=== PATIENT | female | born 1950 | race Caucasian/White ===

== ENCOUNTER 2020-05-09 04:34 | Outpatient (CLI) | payer MEDICARE, SELFPAY ==
[2020-05-09 13:54] LABS: ALT 43 U/L (14-59); AST 31 U/L (15-37); Albumin 3.9 g/dL (3.4-5.0); Alkaline Phosphatase 66 U/L (46-116); Anion Gap 7.8 mmol/L (3-11); BUN 13 mg/dL (7-18); Bilirubin, Total 0.5 mg/dL (0.2-1.0); CO2 27.2 mmol/L (21.0-32.0); CREATININE 0.72 mg/dL (0.55-1.02); Calcium 8.9 mg/dL (8.5-10.1); Calculated LDL 119 mg/dL (<100); Chloride 103 mmol/L (98-107); Cholesterol 208 mg/dL (<200); Glucose 89 mg/dL (74-106); HDL Cholesterol 72 mg/dL (40-60); Potassium 4.1 mmol/L (3.5-5.1); Sodium 138 mmol/L (136-145); TSH (W/Ref FT4) 3.52 uIU/mL (0.36-3.74); Total Protein 7.1 g/dL (6.4-8.2); Triglyceride 85 mg/dL (<150)
== END 2020-05-09 04:54 ==
PROVIDERS: PCP Family Medicine; Visit Provider Family Medicine
DX: R53.83 Other fatigue (principal); M85.80 Other specified disorders of bone density and structure, unspecified site; N95.2 Postmenopausal atrophic vaginitis; E78.89 Other lipoprotein metabolism disorders
CPT/HCPCS: 36415; 80053; 80061; 84443

== ENCOUNTER 2020-05-14 00:55 | Outpatient (CLI) | payer MEDICARE, SELFPAY ==
--- NOTE | 2020-05-14 08:42 | DI.MAMMO_ITS ---
EXAM: MG MAMMO SCREENING CLINICAL HISTORY: SCREENING, Z12.39 TECHNIQUE: Bilateral full field digital CC and MLO mammographic images were obtained with 3D tomosyn thesis and utilizing computer aided detection (CAD). COMPARISON: Available for comparison. FINDINGS: Masses/Architectural Distortion: None seen. Microcalcifications: No suspicious pleomorphic-type are seen. Skin Thickening/Nipple Retraction: None. IMPRESSION: 1. No significant interval change with no specific features of malignancy noted. 2. Unless there is more urgent need, screening mammography is recommended, as per [employer] guidelines. BI-RADS Category 1 - Negative Breast Density - Category B - Scattered areas of fibroglandular density A negative radiographic report should not delay biopsy if a dominant or clinically suspicious mass is present. Up to ten percent of cancers are not identified on mammography. A negative report may reinforce clinical impression. Adenosis and dense breasts may obscure an underlying neoplasm. False positive reports average 6 to 10%. Patient will receive a letter notifying them of these results.
== END 2020-05-14 01:15 ==
PROVIDERS: PCP Family Medicine; Visit Provider Family Medicine
DX: Z12.31 Encounter for screening mammogram for malignant neoplasm of breast (principal); R92.2 Inconclusive mammogram
CPT/HCPCS: 77063; 77067

== ENCOUNTER → 2022-05-28 09:38 | Outpatient (CLI) | payer MEDICARE, SELFPAY ==
--- NOTE | 2022-05-28 08:00 | DI.US_ITS ---
Exam(s) US THYROID EXAM: US THYROID CLINICAL HISTORY: thyroid nodule - left,E04.1. TECHNIQUE: Ultrasound thyroid performed using standard protocol. COMPARISON: No exams were available for comparison FINDINGS: ISTHMUS: 1.6 mm RIGHT LOBE: Size: 4.5 x 1 x 1.1 cm Echogenicity: Normal. Vascularity: Normal. Nodules: There is a 0.6 cm cyst in the right lobe. This is consistent with a TIRADS level 1 benign n odule. No follow-up is recommended. LEFT LOBE: Size: 4.8 x 1.3 x 1.1 cm Echogenicity: Normal. Vascularity: Normal. Nodules: There are 2 simple cysts seen in the left lobe of the thyroid gland. The larger measures 1. 2 x 0.5 x 0.6 cm. These are consistent with benign TIRADS level 1 nodules. No follow-up is recommen ded. There is a small spongiform nodule adjacent to the cysts. No follow-up is recommended. This i s a benign TIRADS level 1 nodule. No follow-up is recommended. OTHER FINDINGS: None. IMPRESSION: No suspicious thyroid nodules. DATA REPOSITORY:
--- OUTSIDE RECORDS SUMMARY | 2022-05-28 09:41 | XMS_ITS | Encounter Summary ---
:1950 Author Organization [facility] [place] [address] Care Team Providers Name Role Phone Magalis Leonard MD Primary Care Provider Encounter Details Date Type Department Care Team Description 04/11/2021 Telephone Dermatology at [facility] Concha Quinn MD [address] [facility] [place] [phone] [address] [phone] [place], [place] [address] (Wo rk) Social History Tobacco Use Types Packs/Day Years Used Date Never Smoker Smokeless Tobacco: Never Used Sex Assigned at Date Recorded Not on file documented as of this encounter Miscellaneous Notes Telephone Encounter - Dinorah Aparicio LPN - 04/11/2021 1:17 PM EDT Spoke with patient today about LN2 on her nose and the gnosticism biopsy that we would be doing in the fall. Explained that we did not often see scaring from the LN2, it is always a possibility but it was infrequent. Also discussed biopsy on gnosticism and again we did not see a lot of scarring with this but a possibility. No new questions. documented in this encounter Plan of Treatment Upcoming Encounters Date Type Specialty Care Team Description 09/29/2022 Office Visit Dermatology Concha Quinn MD [facility] [address] [place], [place] [address] (Wo rk) documented as of this encounter Visit Diagnoses Not on filedocumented in this encounter Care Teams National Sales Representative Relationship Specialty Start Date End Date Magalis Leonard MD PCP - General 01/15/[address] [place] [address] documented as of this encounter
--- OUTSIDE RECORDS SUMMARY | 2022-05-28 09:41 | XMS_ITS | Encounter Summary ---
:1950 Author Organization [facility] [address] Care Team Providers Name Role Phone Magalis Leonard MD Primary Care Provider Reason for Visit Reason Comments Follow-up Encounter Details Date Type Department Care Team Description 06/[facility] Marina Leroy MD AK (actinic keratosis); [address] [facility] Neoplasm of uncertain [place] [phone] [facility] [place], [place] [address] Social History Tobacco Use Types Packs/Day Years Used Date Never Smoker Smokeless Tobacco: Never Used Sex Assigned at Date Recorded Not on file documented as of this encounter Patient Instructions Patient InstructionsTiesha Pedroza LPN - 06/04/2021 10:00 AM EDT Actinic Keratoses You have been diagnosed today with Actinic Keratosis (AK). These dry, scaly patches are considered the earliest stage in the development of skin cancer. In rare cases, an AK can progress to skin cancer. Because of this risk, AKs are usually treated. You were treated today with Liquid Nitrogen. This is the most common treatment for AKs. Liquid nitrogen is extremely cold, and freezes the surface of the skin, causing the lesion to flake off. Treatment with liquid nitrogen can be uncomfortable, but discomfort should subside after a couple of hours. The area treated will look red and irritated, and it may blister up or turn dark, then fall off. This is normal! You do not need any special treatment for the area, but you may find cold compresses and/or a light application of Vaseline soothing. For best results, do not rub or pick at the healing lesion. Expected healing time is 3-4 weeks. Please contact the Dermatology clinic if the lesion has not fully resolved after 6 weeks. Treatment and Wound Care Instructions Your treatment today: You have had a shave biopsy of your skin, which is a removal of tissue for examination under a microscope. This wound will heal without stitches. Allow 3-6 weeks for the wound to heal. If bleeding occurs, hold firm pressure against the wound for 15 minutes. If bleeding continues, calls the office or go to your local emergency room. Please allow 1-2 weeks for the biopsy results to return. Your physician or nurse will contact you with the results by phone or letter; follow-up will be discussed at that time. Wound Care Instructions: You will need to keep the dressing placed over the wound dry and intact for 24 hours. Afterwards, perform the following wound care daily: ?? Wash your hands before changing the dressing. ?? Remove the bandage and clean the area with mild soap and water, then gently pat the area dry. ?? Apply a small amount of Vaseline to the area, then cover the wound with a band-aid. Change your dressing daily until the wound is fully healed. ?? A small amount of yellow drainage is part of normal healing. The area might appear as a small depression with redness around the edge of the wound. This is normal. ?? Please contact the office if you notice any of the following signs of infection: increased tenderness, pain, drainage, or redness that becomes hot or hard around the wound. documented in this encounter Progress Notes Dimple Quinn MD - 06/04/2021 10:00 AM EDT Images from the original note were not included. DEPARTMENT OF DERMATOLOGY Medical Dermatology Clinic Provider: DIMPLE QUINN MD Patient's preferred name Porsha Preferred contact method for results [x]Phone []myD-H []Letter Detailed phone message OK? Yes Are there any other people with whom we may discuss your care? , Luis Past Medical History Date, location, treatment Melanoma N Dysplastic nevi 12/29/20107: right scapula, moderate DN 12/29/2016: left inferior scapula, severe DN, S/P excision 05/09/2019: left posterior lateral thigh, severe DN, S/P excision SCC N BCC N AKs N UV Exposure & Protection N Other relevant past medical history Uterine cancer 25 years ago, S/P surgery Rosacea: metrogel Family History Details Melanoma N NMSC N Other relevant family history N Social History Occupation: retired Other: , had melanoma Pre-Procedure Questions Details Allergy to lidocaine, epinephrine, Dermabond, chlorhexidine, or adhesives No Bleeding disorder or blood thinners No Pacemaker, defibrillator, deep brain stimulator, cochlear implant No History of Present Illness: Porsha Rodgers is a 70 y.o. Patient returns to clinic today for a follow pu of the lesion on the left confucianism and nose. - Patient notes that she has an area on the left confucianism that is to be biopsied and spot on the nose that needs LN2 treatment. She mentioned she has other areas on the trunk that need to be treated withLN2. Last visit at [facility] Derm: 03/11/2021 Last visit with this provider: 03/11/2021 Medications: Reviewed in eD-H Allergies: Reviewed in eD-H Skin Examination: Focused exam of left confucianism, nose, torso. Assessment/Plan Neoplasm of uncertain behavior - 0.4 cm pink pearly papule on the left confucianism BCC I discussed this condition with the patient and explored therapeutic options. I recommended we do a shave biopsy, patient is in agreement with this procedure. Procedure: Skin biopsy by shave technique Location: left confucianism Discussed indications for procedure and expectations including risks and benefits. Verbal consent obtained. Skin prep with alcohol. Local anesthesia with 1% xylocaine, 1/100,000 epinephrine. A sample of the lesion was removed by shave technique to the level of the dermis and submitted to Pathology. Hem ostasis obtained (AlCl and/or electrocautery). There were no complications; the pt. tolerated the procedure well. The wound was dressed. Post-procedure expectations, wound care and activity restrictions were reviewed. Follow-up based on pathology results Actinic damage, history of AK- Nasal tip: Clear on exam today -Continue to monitor. Seborrheic Keratoses - waxy, brown stuck-on papules - Explained that these are hereditary and adult-acquired. Reassured patient of benign nature. No treatment necessary. - Discussed cosmetic removal with cryotherapy. Patient quoted $100 for removal of 1-10, and $200 forremoval of 11-20. Patient declined cosmetic removal today. - Pt quoted 100.00. See cosmetic note Figure 1 Photo in chart from 03/11/2021 Photo(s) taken and charted with patient's verbal consent. Other: ??? N/A RTC: Based on path for 1 year FSE February 2022 []Note routed to secretary to board of commissioners [x]Recall placed in scheduling system []Appointment scheduled at checkout I performed the above scribed service and agree with the accuracy of the documentation in this encounter. Reviewed and signed by: DIMPLE QUINN MD Dermatology [facility] Dimple Quinn MD - 06/04/2021 10:00 AM EDT CD, Biopsy shows BCC, recommend Mohs. Please notify patient and refer for Mohs. documented in this encounter Plan of Treatment Upcoming Encounters Date Type Specialty Care Team Description 09/29/2022 Office Visit Dermatology Dimple Quinn MD [facility] [address] [place], [place] [address] (Wo rk) documented as of this encounter Procedures Procedure Name Priority Date/Time Associated Diagnosis Comme nts SPECIMEN TO Routine 06/04/2021 10:34 AM Neoplasm of Results for this PATHOLOGY EDT uncertain behavior procedure are in of skin the results section. SURGICAL PATHOLOGY Routine 06/04/2021 10:22 AM Re sults for this REPORT EDT procedure are i n the results section. documented in this encounter Results Specimen to Pathology (06/04/2021 10:34 AM EDT) Specimen Anatomical Collection Method Collection Time Receive d Time (Source) Location / / Volume Laterality AP Specimen 06/04/2021 10:34 06/04/2021 AM EDT 10:34 AM EDT Narrative [facility] - 06/04/2021 10:34 AM EDT Specimen requisition ordered. ??Separate Pathology report to follow Dimple Quinn MD PATHOLOGY/CYTOLOGY ORDERABLE S Performing Organization Address City/State/[place] [address] Surgical Pathology Report (06/04/2021 10:22 AM EDT) Component Value Ref Test Analysis Performed At [facility] Range Method Time Signature Surgical [id number] ? Location: [facility] The signing pathologist has (i) examined the relevant preparation(s) for the [facility] specimen(s) and (ii) rendered or confirmed the diagnosis(es) . HOSPITAL LABORATORY . ?Surgic al Pathology DIAGNOSIS Left confucianism, skin shave biopsy: - ??Basal cell carcinoma, no dular type, present at the peripheral and deep specimen edges Electronically signed by: ?Sajan Morel MD Verified: ??06/09/2021 14:12 ??Dermatopathologist, Bone & Soft Tissue Pathologist Performed at: ??-[facility] Dept. of Pathology, [place], [place] SPECIMEN(S) SUBMITTED A - left confucianism, skin shave biopsy (1) CLINICAL INFORMATION 0.4 cm pink pearly papule on the left confucianism; DDX: BCC SPECIMEN PROCESSING A - Labeled/Fixative: Left confucianism, formalin. Quantity/Size: ??Single, 0.6 x 0.5 x 0.1 cm. Tissue Description: Shave of schafer skin wi th a central 0.4 cm glistening papule. Sections/Processing: Inked, trisected and entirely submitted in 1 cassette labele d A1. ??morro Specimen (Source) Anatomical Collection Method Collection Time Re ceived Time Location / / Volume Laterality 06/04/2021 10:22 AM EDT Dimple Quinn MD PATHOLOGY/CYTOLOGY ORDERABLE S Performing Organization Address City/State/[place] [address] documented in this encounter Visit Diagnoses Diagnosis Seborrheic keratoses AK (actinic keratosis) Actinic keratosis Neoplasm of uncertain behavior of skin documented in this encounter Care Teams Keyseating Machine Set Up Operator Relationship Specialty Start Date End Date Magalis Leonard MD PCP - General 01/15/[address] [place] [address] documented as of this encounter
--- OUTSIDE RECORDS SUMMARY | 2022-05-28 09:41 | XMS_ITS | Encounter Summary ---
:1950 Author Organization [facility] [place] [address] Care Team Providers Name Role Phone Magalis Leonard MD Primary Care Provider Reason for Visit Reason Comments Procedure Excision Encounter Details Date Type Department Care Team Description 06/27/2019 [facility] [address] [place] [address] [address] [phone] [facility] [place], [place] [address] (Wo rk) Social History Tobacco Use Types Packs/Day Years Used Date Never Smoker Smokeless Tobacco: Never Used Sex Assigned at Date Recorded Not on file documented as of this encounter Patient Instructions Patient InstructionsKaila Wheat, [facility] - 06/27/2019 3:30 PM EDT Post-Operative Instructions Wound care: The dressing applied today should remain dry and intact for 48 hours. When it is time to remove the dressing, wash your hands, wet the area, and gently remove the dressing. Afterward perform the following daily wound care: 1. Clean the wound with mild soap and warm water, and gently pat dry. 2. Apply Vaseline, Aquaphor or another brand of plain petroleum jelly. Do NOT use peroxide or antibiotic ointment/cream (Neosporin or Bacitracin) on the wound. 3. Cover the wound with a new bandage, such as non-stick Telfa pad and paper tape, or a Band-Aid. 4. Repeat this regimen every day until your sutures are removed. A small amount of yellow drainage is part of the normal healing process. The wound is not consideredhealed until the drainage stops. It may take up to 3-4 weeks depending on the surgical site. Signs of infection include: increasing redness, drainage, swelling, tenderness or pain. If you notice any ofthose symptoms, please contact the clinic. For bleeding or discomfort: If bleeding should occur, hold firm, constant pressure against the wound for 15- 20 minutes (with no peeking). If bleeding continues, repeat for another 15-20 minutes. If that does not stop the bleeding, call the clinic or go to your local emergency department. For discomfort, you may take acetaminophen (Tylenol), according to package directions. For the first48 hours, avoid aspirin and ibuprofen (Advil, Motrin), as they increase the risk of bleeding. After 48 hours, it is okay to switch to aspirin or ibuprofen as needed. Activity restrictions: It is important that you avoid strenuous and/or vigorous activities, heavy lifting (more than 5-10 pounds, the equivalent of 1 gallon of milk) and bending for a period of 3 weeks. Suture removal: The sutures should be removed in 12-14 days. Contact information: On weekdays (8am to 5pm), please call the clinic at [phone]. After 5pm, and on weekends and holidays, please call the hospital at [phone] and ask for the Wig Maker Port Crane Operator. Doctor: Concha Quinn MD Bioprocess Engineer: RONN Sotelo documented in this encounter Progress Notes Concha Quinn MD - 06/27/2019 3:30 PM EDT Images from the original note were not included. Procedure note: Attending: Concha Quinn MD Bioprocess Engineer: RONN Sotelo Referring MD: N/A ? Y/N? Blood thinners?? ? Yes: ASA81 Pacemaker or defibrillator?? ? No Artificial heart valves? ? No Artificial joints? No Prophylactic antibiotics?? ? No If yes, time taken?? ? Allergies to lidocaine and epinephrine? ? No ? Allergies to adhesives or chlorhexidine? ? Yes: adhesives ? Pathology: [id number] (05/09/2019) Left posterior lateral thigh, shave biopsy: Predominantly junctional dysplastic nevus with severe atypia, irritated, extending close to the peripheral and deep specimen edges. Discussion: The lesion isbroad with prominent lentiginous and partially nested growth, increase in cellularity, adnexal involvement and scattered pagetoid melanocytes. Focal dermal regression-related changes are also noted. The lesional cells extend towards the deep specimen edge along the adnexa and close to the??periphery. ---- I explained the diagnosis to the patient and recommend an excision of the lesion for diagnosis and/or treatment. I explained all treatment options and risks of the procedure to the patient and obtainedwritten consent. Potential complications include, but not limited to: scar, bleeding, infection, incomplete removal, nerve damage, and dehiscence. ? The patient was brought into room. A time out was performed. The patient was prepared and draped sterilely in the usual manner and anesthesia was administered by local infiltration. A fusiform shape was drawn around the lesion, and the margins were incised to the level of the subcutaneous fat with a number 10 blade. The tissue was removed with sharp and blunt dissection. The lateral margins of the resulting defect were undermined with sharp and blunt dissection and hemostasis was achieved with electrocautery. The deeper layers of the defect including subcutaneous fat were approximated to reduce tension on the suture line. Layered wound closure was performed. The wound was cleaned, dried off, Vaseline was applied and the wound covered with a pressure dressing. The patient was given detailed verbaland written instructions on post-operative care. ? In the event of a suspected infection (e.g. pus formation, fever, redness), the patient knows to call the clinic or the on-call convertible sofa bedspring tester over the weekend. ??? Name of Procedure? ? Excision with intermediate layered closure Location? ?? Left posterior lateral thigh Diagnosis? ?? Severe DN Size (maximal) (cm)? ?? 1.2 x 1.0 cm pink scar Margins (cm)? 0.4 cm ? Size + Margins (cm)? ? 2 cm ? 1% lidocaine with epinephrine? 9 cc? Suture (adipose/dermis)? 4-0 P2 Monocryl? Suture (epidermis)? 4-0 P2 Prolene? Final wound length? 4.6 cm? Suture removal? 12-14 days?; patient will have her daughter remove Note: Specimen tagged at the superior tip. Best way to reach you with results: Cell phone, okay to leave a detailed message or speak with her (Luis). Follow Up: RTC in May 2020 for a 1-year full skin exam; sooner if needed. Recall in system to schedule. Instructed patient to call with questions or concerns. Pre Op Photo(s) taken and charted with patient's verbal consent. Concha Quinn MD - 06/27/2019 3:30 PM EDT Radha, Excision shows scar, no residual lesion. Please notify patient and check on wound healing. Thank you. DTB Mark Baxter LPN - 06/27/2019 3:30 PM EDT Spoke with patient regarding her recent excision pathology from the left posterior lateral thigh. Per Dr. Quinn: Excision shows scar, no residual lesion. Patient verbalized understanding and reports she is healing well from the excision procedure. She plans to have her sutures removed at an outside cl inic 14 days post-op as instructed. I encouraged an additional 7 days of physical restriction once her sutures are removed, and to call our clinic with any question or concerns. Patient verbalized understanding. MARK BAXTER LPN documented in this encounter Plan of Treatment Upcoming Encounters Date Type Specialty Care Team Description 09/29/2022 Office Visit Dermatology Concha Quinn MD [facility] [address]DERMAT [place], [place] [address] (Wo rk) documented as of this encounter Procedures Procedure Name Priority Date/Time Associated Diagnosis Comme nts SURGICAL PATHOLOGY Routine 06/27/2019 4:36 PM Res ults for this REPORT EDT procedure are i n the results section. SPECIMEN TO Routine 06/27/2019 4:36 PM Dysplastic nevus Resul ts for this PATHOLOGY EDT procedure are i n the results section. documented in this encounter Results Surgical Pathology Report (06/27/2019 4:36 PM EDT) Component Value Ref Test Analysis Performed At [facility] Range Method Time Signature Surgical -[id number] ? Location: [facility] Pathology ALTO Report The signing pathologist has (i) examined the relevant preparation(s) for the MEMORIAL specimen(s) and (ii) rendered or confirmed the diagnosis(es) . HOSPITAL LABORATORY . ?Surgic al Pathology DIAGNOSIS Skin, left posterior lateral thigh, excision: - No residual of the previou sly diagnosed dysplastic nevus ?(see Discussion) - ??Reparative changes consistent with previous operative si te Electronically signed by: ??Jesús CURIEL, PhD, Judith Verified: ??06/30/2019 ?Dermatopathologist Performed at: ??-[facility] Dept. of Pathology, [place], [place] DISCUSSION Slides of the patient's prior biopsy (- ?? [id number]) have been reviewed. CLINICAL INFORMATION Specimen Submitted: A - Skin, Left posterior lateral thigh, Excision (1) Clinical History and Diagnosis: 1.2 x 1.0 cm pink scar; delmi COLON (see previous pathology -[id number]); specimen tagged at the superior tip SPECIMEN PROCESSING A - Labeled/Fixative: Left posterior lateral thigh, formalin . Quantity/Size: ??Single, 3.5 x 1.7 x 0.4 cm. Tissue Description: Ellipse of wrinkled, yellow-schafer skin with a central 0.6 x 0.5 cm umbilicated scar. A suture decker the superior ellipse tip and this is now designated as 12 o'clock Inkin-3-6 o'clock is marked black. ??6-9-12 o'clock is marked blue. Sections/Processing: Serially sectioned and entirely submitted in 5 cassettes as follows: ?A1: ??12 o'clock tip ?A2-A4: ??Body of the specimen from 12 to 6 o'clock ?A5: ??6 o'clock tip ??ejr Specimen (Source) Anatomical Collection Method Collection Time Re ceived Time Location / / Volume Laterality 06/27/2019 4:36 PM EDT Concha Quinn MD PATHOLOGY/CYTOLOGY ORDERABLE S Performing Organization Address City/[facility]/[place] [address] Specimen to Pathology (06/27/2019 4:36 PM EDT) Specimen Anatomical Collection Method Collection Time Receive d Time (Source) Location / / Volume Laterality AP Specimen 06/27/2019 4:36 PM 9 6:29 EDT PM [address] [facility] [facility] - 06/27/2019 6:29 PM EDT Specimen requisition ordered. ??Separate Pathology report to follow Resulting Agency Comment Spec In Lab Concha Quinn MD PATHOLOGY/CYTOLOGY ORDERABLE S Performing Organization Address City/[facility]/[place] [address] documented in this encounter Visit Diagnoses Diagnosis Dysplastic nevus Benign neoplasm of skin, site unspecifie d documented in this encounter Care Teams Swine Genetics Researcher Relationship Specialty Start Date End Date Magalis Leonard MD PCP - General 01/15/[address] [place] [address] documented as of this encounter
--- OUTSIDE RECORDS SUMMARY | 2022-05-28 09:41 | XMS_ITS | Clinical Summary ---
:1950 Author Organization [facility] [place] [address] Care Team Providers Name Role Phone Magalis Leonard MD Primary Care Provider Allergies Active Allergy Reactions Severity Noted Date Comments Ibuprofen CIS - Palpitati ons Sulfa (Sulfonamide CIS - Clive mors/elev. temp. Antibiotics) Medications Medication Sig Dispensed Refills Start Date End Date Status CIS Free Text Med - All 0 03/01/2006 Active Purpose Multivitamin-Min CIS Free Text Med - 0 03/01/2006 Active Metrogel Calcium 0 03/01/2006 Active Carbonate-Vitamin D3 (CALCIUM 600 WITH VITAMIN D3) 600 mg(1,500mg) -400 unit Cap GLUCOSAMINE HCL/CHONDRO 0 03/01/2006 Active LUNA A (GLUCOSAMINE-CHONDROITI N ORAL) loratadine (CLARITIN) 0 03/01/2006 Active 10 mg tablet ESTRADIOL (VAGIFEM Place vaginally. 0 Active VAGL) DOCOSAHEXANOIC ACID/EPA Take by mouth. 0 Active (FISH OIL ORAL) b complex vitamins Take 1 capsule by 0 Active Capsule mouth daily. aspirin 81 mg Tablet, Take 81 mg by 0 Active Delayed Release (E.C.) mouth daily. ascorbic acid (AGUSTINA-C Take by mouth. 0 Active ORAL) magnesium 250 mg Tablet Take by mouth. 0 Active ergocalciferol, vitamin Take by mouth. 0 Active D2, (VITAMIN D ORAL) TURMERIC ORAL Take by mouth. 0 A ctive With cucurmin Immunizations Name Administration Dates Next Due Td, adult 09/16/2004 Family History Medical History Relation Comments Breast Cancer Maternal Grandmother Relation Status Comments Maternal Grandmother Social History Tobacco Use Types Packs/Day Years Used Date Never Smoker Smokeless Tobacco: Never Used Sex Assigned at Date Recorded Not on file Last Filed Vital Signs Vital Sign Reading Time Taken Comments Blood Pressure 130/74 09/23/2021 12:15 PM EST Pulse 57 09/23/2021 12:15 PM EST Temperature - - Respiratory Rate - - Oxygen Saturation - - Inhaled Oxygen Concentration - - Weight - - Height - - Body Mass Index - - Plan of Treatment Upcoming Encounters Date Type Specialty Care Team Description 09/29/2022 Office Visit Dermatology Concha Quinn MD [facility] [address] COOK-DERMAT [place], [place] [address] (Wo rk) Health Maintenance Due Date Last Done Comments Covid-19 Vaccine (#1) 1955 Hepatitis C Screening 1968 Tdap adult 1969 Breast Cancer Share Decision 1990 Needed Colonoscopy 1995 Zoster vaccine (1 of 2) 2000 Advance Directive 2005 Tetanus vaccine 09/16/2014 09/16/2004 Bone Density Scan 2015 Pneumoccocal Vaccine: 65+ (1 - 2015 PCV) Breast Cancer screening 03/31/2020 03/31/2018, 05/08/2016, 03/04/2015, Additional history exists Influenza (Flu) vaccine (1 of 1 - 05/14/2022 Influenza standard series) Insurance Payer Benefit Plan / Subscriber ID Effective Phone Address T ype Group Dates MEDICARE MEDICARE PART A [id number] 2015-Pres [phone] [facility] [place] [phone] AETNA MEDICARE AETNA MEDICARE [id number] 2020-Prese [address] [address] [place] [address] Care Teams Senior Maintenance Machinist Relationship Specialty Start Date End Date Magalis Leonard MD PCP - General 01/15/[address] [place] [address]
--- OUTSIDE RECORDS SUMMARY | 2022-05-28 09:41 | XMS_ITS | Encounter Summary ---
:1950 Author Organization [facility] [place] [address] Care Team Providers Name Role Phone Magalis Leonard MD Primary Care Provider Reason for Referral Consultation (Routine) - Closed Specialty Diagnoses / Procedures Referred By Contact Refer red To Contact Dermatology Diagnoses Basal cell carcinoma of left religion region Concha Quinn MD [facility] [address] [facility] [place] [address] [place] [address] Referral ID Status Reason Start Date Expiration Date Visits V isits Requested Authorized [id number] Closed Consult, 06/14/2021 06/14/2022 1 1 Test & Treat Encounter Details Date Type Department Care Team Description 06/14/2021 Telephone Dermatology at [facility] Concha Quinn MD [address] [facility] [place] [address] [facility] [phone] [place], [place] [address] (Wo rk) Social History Tobacco Use Types Packs/Day Years Used Date Never Smoker Smokeless Tobacco: Never Used Sex Assigned at Date Recorded Not on file documented as of this encounter Miscellaneous Notes Telephone Encounter - Dinorah Aparicio LPN - 06/14/2021 2:19 PM EDT Referred to [facility] per Dr. Quinn documented in this encounter Plan of Treatment Upcoming Encounters Date Type Specialty Care Team Description 09/29/2022 Office Visit Dermatology Concha Quinn MD [facility] [address] [place], [place] [address] (Wo rk) Scheduled Referrals Name Type Priority Associated Order Schedule Diagnoses Referral to Outpatient Referral Routine Basal Cell Ordered: Dermatology Carcinoma Of Left 06/14/2021 [place] documented as of this encounter Visit Diagnoses Diagnosis Basal cell carcinoma of left religion traci on Basal cell carcinoma of skin of other an d unspecified parts of face documented in this encounter Care Teams Knitting Supervisor Relationship Specialty Start Date End Date Magalis Leonard MD PCP - General 01/15/[address] [place] [address] documented as of this encounter
--- OUTSIDE RECORDS SUMMARY | 2022-05-28 09:41 | XMS_ITS | Encounter Summary ---
:1950 Author Organization [facility] [place] [address] Care Team Providers Name Role Phone Magalis Leonard MD Primary Care Provider Encounter Details Date Type Department Care Team Description 06/27/2019 Telephone Dermatology at [facility] Concha Quinn MD [address] [facility] [place] [address] [facility] [phone] [place], [place] [address] (Wo rk) Social History Tobacco Use Types Packs/Day Years Used Date Never Smoker Smokeless Tobacco: Never Used Sex Assigned at Date Recorded Not on file documented as of this encounter Miscellaneous Notes Telephone Encounter - Mark Baxter LPN - 06/27/2019 9:11 AM EDT Pre - OP Excision Phone Call Date of Call: 06/27/19 Unable to reach Porsha Rodgers by phone to discuss pre-op procedure instructions. Message left on answering machine. MARK BAXTER LPN documented in this encounter Plan of Treatment Upcoming Encounters Date Type Specialty Care Team Description 09/29/2022 Office Visit Dermatology Concha Quinn MD [facility] [address] [place] [address] (Wo rk) documented as of this encounter Visit Diagnoses Not on filedocumented in this encounter Care Teams Hand Spray Operator Relationship Specialty Start Date End Date Magalis Leonard MD PCP - General 01/15/[address] [place] [address] documented as of this encounter
--- OUTSIDE RECORDS SUMMARY | 2022-05-28 09:41 | XMS_ITS | Encounter Summary ---
:1950 Author Organization [facility] [address] Care Team Providers Name Role Phone Magalis Leonard MD Primary Care Provider Reason for Visit Reason Comments Pre-op Exam Pre-op nurse intake Encounter Details Date Type Department Care Team Description 06/27/2019 Clinical Support Dermatology at [facility] Pre-op exam [address] [place] [address] Social History Tobacco Use Types Packs/Day Years Used Date Never Smoker Smokeless Tobacco: Never Used Sex Assigned at Date Recorded Not on file documented as of this encounter Last Filed Vital Signs Vital Sign Reading Time Taken Comments Blood Pressure 110/64 06/27/2019 5:54 PM EDT Pulse - - Temperature - - Respiratory Rate - - Oxygen Saturation - - Inhaled Oxygen Concentration - - Weight - - Height - - Body Mass Index - - documented in this encounter Progress Notes [facility]ail[facility] Wheat[facility] - 06/27/2019 3:15 PM EDT DERMATOLOGY NURSE/MA VISIT NOTE Date of service: 06/27/2019 Porsha Rodgers : 1950 Provider: CRISTIAN DELAROSA DERM NURSE CC Pre-procedure nurse intake HPI Porsha Rodgers is a 68 y.o. female, who presents to the clinic today for a procedure visit. EXAM Pre-surgery vital signs: Most Recent Vitals: 06/27/19 1754 BP: 110/64 Allergies: Ibuprofen and Sulfa (sulfonamide antibiotics) Meds: Current Outpatient Medications Medication Sig Dispense Refill ??? DOCOSAHEXANOIC ACID/EPA (FISH OIL ORAL) Take by mouth. ??? b complex vitamins Capsule Take 1 capsule by mouth daily. ??? aspirin 81 mg Tablet, Delayed Release (E.C.) Take 81 mg by mouth daily. ??? ESTRADIOL (VAGIFEM VAGL) Place vaginally. ??? CIS Free Text Med - All Purpose Multivitamin-Min ??? CIS Free Text Med - Metrogel ??? Calcium Carbonate-Vitamin D3 (CALCIUM 600 WITH VITAMIN D3) 600 mg(1,500mg) - 400 unit Cap (Patient not taking: No sig reported) ??? GLUCOSAMINE HCL/CHONDRO LUNA A (GLUCOSAMINE-CHONDROITIN ORAL) ??? loratadine (CLARITIN) 10 mg tablet No current facility-administered medications for this visit. Reviewed surgery expectations and post-operative wound care instructions. Patient verbalized understanding. Answered all questions. Confirmed surgical site with patient. Prepared patient for surgery. RONN Vila Section of Dermatology [facility] documented in this encounter Plan of Treatment Upcoming Encounters Date Type Specialty Care Team Description 09/29/2022 Office Visit Dermatology Concha Quinn MD [facility] [address]RIST[address] COOK-DERMAT [place], [place] [address] (Wo rk) documented as of this encounter Visit Diagnoses Diagnosis Pre-op exam Preoperative examination, unspecified documented in this encounter Care Teams Cephalometric Tracer Relationship Specialty Start Date End Date Magalis Leonard MD PCP - General 01/15/[address] [place] [address] documented as of this encounter
--- OUTSIDE RECORDS SUMMARY | 2022-05-28 09:41 | XMS_ITS | Encounter Summary ---
:1950 Author Organization [facility] [place] [address] Care Team Providers Name Role Phone Magalis Leonard MD Primary Care Provider Reason for Visit Consultation (Routine) - Closed Specialty Diagnoses / Procedures Referred By Contact Refer red To Contact Dermatology Diagnoses Basal cell carcinoma of left rastafari region Concha Quinn MD [facility] [address] [facility] [place] [place] [address] [place] [address] Referral ID Status Reason Start Date Expiration Date Visits V isits Requested Authorized [id number] Closed Consult, 06/14/2021 06/14/2022 1 1 Test & Treat Encounter Details Date Type Department Care Team Description 09/23/2021 Procedure visit Dermatology at [facility] Ruy Polanco Basal cell carcinoma Marina Perkins MD (BCC) of left rastafari [address] [place], [place] CENTER [address] [facility] [phone] [address]-[place]MATOLOGY [place], [place] [address] Social History Tobacco Use Types Packs/Day Years [...] - documented in this encounter Progress Notes Ruy Polanco MD - 09/23/2021 9:30 AM EST Images from the original note were not included. Summary of Procedure(s): Site: left rastafari Tumor Type: Basal Cell Carcinoma, nodular Stages to clear tumor: 1 Repair: Intermediate linear closure Images: The patient was asked to call with any issues and is aware that I am available 05/04 should questionsarise. Ruy Polanco MD PhD Mohs Micrographic Surgery and Dermatologic Oncology Department of Dermatology Please note that I have reviewed the preoperative checklist from today's nursing visit including relevant social history and medications. I have reviewed the preoperative photos if available and the biopsy report. VITAL SIGNS: BP 130/74 Pulse 57 PHYSICAL EXAMINATION: General: patient is awake, alert, oriented and in no acute distress. Skin: Focused examination of surgical site(s) performed which shows a well healed biopsy site with surrounding poorly defined pearly plaque. PHYSICIAN REVIEW OF REPORTS, RECORDS, IMAGES: 1) The accompanying pathology report(s) associated with aforementioned biopsy slide(s) were/was alsoreviewed. Assessment: Porsha Rodgers is a 71 y.o. female presenting for: 1. Biopsy-proven basal cell carcinoma, nodular, located on the left rastafari. Plan: 1. Findings from the biopsy report, today's clinical exam, and other pertinent details were reviewedwith patient today. All questions were answered. 2. Discussed treatment options based on the above findings. We recommended Mohs micrographic surgeryfor treatment of this tumor. Mohs micrographic surgery was indicated due to patient, site and/or tumor characteristics (see operative report for specific indication). 3. We discussed risks, benefits, and alternative treatment options to the Mohs micrographic surgery procedure and pertinent information including but not limited to the following: ?? Risks include bleeding, infection, scar, recurrence, incomplete tumor removal or inability to cure with surgery alone if the tumor features are more aggressive than the initial pathology indicates. Occasionally, additional adjuvant treatments may be recommended. Additional risks include large wound, prolonged wound and healing, pain, swelling, bruising, increased appearance of vessels or worseningerythema of baseline skin; more rarely risks include damage to underlying structures such as nerves,cartilage, or muscle which could lead to temporary or permanent loss of sensation or motor function. ?? Benefit is precise tumor removal ?? If reconstruction is performed, it is specific to the patient and defect. ?? Discussed that the shape, size, depth of the wound is often not known until the tumor is cleared and thus the reconstruction options are sometimes not known until after tumor clearance. Occasionally, referrals to other providers may be recommended for reconstruction based on patient preference and need. ?? Reviewed the pros and cons of common reconstructions used for this tumor type, size, and location, and that reconstruction may lead to change in appearance. ?? Natural history of scar was discussed, including that the scar will continue to mature for 1-2 years. Recommended avoidance of special ointments or scar creams, and avoidance of direct sun exposure to the scar for optimal recovery. ?? Reviewed that there are some aspects of cosmesis that are dependent on patient's characteristics such as age, skin laxity/texture factors, inflammatory skin diseases such as rosacea, prior surgery/radiation, degree of actinic damage, smoking status, strength of the patient's immune system, diligentwound care, medications, and genetics. ?? Having Mohs surgery may lead to physical limitations for optimal healing, such as restricted physical activity and heavy lifting. 4. The nature of sun-induced photo-aging and skin cancers was discussed. Recommended sun avoidance when possible, especially peak hours of sun 10 am to 2pm, protective clothing such as wide-brimmed hats and long-sleeved clothing, and the use of SPF broad-spectrum sunscreen SPF 50 or higher. 5. Signs and symptoms of skin cancer reviewed. Patient to report any new, changing, or symptomatic lesions and follow up with his or her registered nurse obstetrics or other skin provider. 6. Discussed avoiding direct sun exposure to scars for best cosmetic result. Note initiated by MARLYS Eckert CMA has performed the documentation for this encounter in the presence of and acting as a scribe for Dr. Polanco I performed the above scribed service and agree with the accuracy of the documentation in this encounter. Reviewed and signed by: Ruy Polanco Dermatology [facility] Ruy Polanco MD - 09/23/2021 9:30 AM EST Mohs micrographic Surgery Operative Report Patient name: Porsha Rodgers : 1950 Date: 09/23/2021 Staff Surgeon: Ruy Polanco MD PhD Nursing/Social Services Director(s): Tali Johnston [facility], Nikkie Marie LPN, Kajal Pierce TUB RIDER, Marvin Waller TUB RIDER Timber Sizer Operator (s): Porsha Castanon Pre-operative diagnosis: Basal Cell Carcinoma, nodular Post-operative diagnosis: Basal Cell Carcinoma, nodular Location/Site: left rastafari Procedure: Mohs micrographic surgery Indication(s) for Mohs micrographic surgery: Anatomic location for tissue conservation Stages: 1 Preoperative size of tumor: 0.6 x 0.5 cm Stage I The nature and purpose of the procedure, associated risks, possible consequences and complications,and alternative forms of treatment were explained in detail. We reviewed the possible repairs based on the clinical appearance of tumor but discussed that often the repair options may not be known until the tumor has jhon extirpated. Informed consent and permission to take photographs were obtained. The site was confirmed with the patient/authorized registration representative/referring physician and/or a photograph form time of biopsy. A pre-operative time-out (procedural pause) was conducted with no unresolved d iscrepancies noted. Local anesthesia was obtained with 1% lidocaine with 1:100,000 epinephrine. The surgical site was prepped and draped in the usual sterile manner. With all visible gross tumor completely excised, the borders of the tumor and 2-3 mm margins were excised as a complete layer. Hemostasis was achieved by electrocoagulation. The excised tissue was oriented and divided into 2 sections, chromacoded, and submitted for frozen sections. The patient tolerated the procedure well and without complications. On microscopic evaluation of the frozen sections, no residual tumor was identified on the deep or outer border of the sections. The final size of the defect after complete tumor removal was 1.0 x 0.8 cm, extending to level of subcutaneous tissue. Ruy Polanco MD PhD Mohs Micrographic Surgery and Dermatologic Oncology Department of Dermatology [address] [place] [id number] Repair Operative Report Clinical Diagnosis: 1.0 x 0.8 cm surgical defect secondary to Mohs microscopically controlled excision Location/Site: left rastafari Indication: repair of wound for anatomic/functional latter-day Procedure: Intermediate linear closure of Mohs defect Weave Room Supervisor: Ezio Bustamante MD, Marvin Waller CMA Due to the size and location of the defect resulting from the complete removal of the tumor, the postoperative risk of hemorrhage, infection, and the possibility of serious deformity from scarring, and in order to restore proper function and prevent loss of function, the defect was closed in the following manner. The nature and purpose of the procedure, associated risks, possible consequences, complications andalternative methods of treatment were explained to the patient in detail. An informed consent was obtained. The operative site was anesthetized with 1% lidocaine with 1:100,000 epinephrine. The site was prepped and draped in the usual sterile manner. Moderate undermining of the surrounding tissue was performed for tension free closure as necessary and redundant tissue excised. The deep tissues were apposed and sutured with 4-0 Monocryl sutures and the epidermal edges were approximated with 6-0 Fast A bsorbing Gut running and/or interrupted sutures. .The resulting intermediate linear closure measured3.0 cm. The surgical site was cleaned and white petrolatum with a pressure dressing was applied. The patient tolerated the procedure well and without complications and was given both verbal and written instruction on postoperative wound care. Follow up as needed. The patient was discharged in good condition. Total local anesthesia with 1% lidocaine with 1:100,000 epinephrine used: 4.5 cc Total local with 0.25% bupivacaine used: 2.0 cc Ruy Polanco MD PhD Mohs Micrographic Surgery and Dermatologic Oncology Department of Dermatology [address] [place] [id number] Note initiated by Marvin Waller CMA. Marvin Waller CMA has performed the documentation for this encounter in the presence of and acting as a scribe for Dr. Carl Farrell performed the above scribed service and agree with the accuracy of the documentation in this encounter. Reviewed and signed by: Ruy Polanco Dermatology [facility] documented in this encounter Plan of Treatment Upcoming Encounters Date Type Specialty Care Team Description 09/29/2022 Office Visit Dermatology Concha Quinn MD [facility] [address] [place], [place] [address] (Wo rk) Scheduled Referrals Name Type Priority Associated Order Schedule Diagnoses Referral to Outpatient Referral Routine Basal Cell Ordered: Dermatology Carcinoma Of Left 06/14/2021 [facility] documented as of this encounter Visit Diagnoses Diagnosis Basal cell carcinoma (BCC) of left templ e region documented in this encounter Care Teams Bread Racker Relationship Specialty Start Date End Date Magalis Leonard MD PCP - General 01/15/[address] [place] [address] documented as of this encounter
--- OUTSIDE RECORDS SUMMARY | 2022-05-28 09:41 | XMS_ITS | Encounter Summary ---
:1950 Author Organization [facility] [place] [address] Care Team Providers Name Role Phone Magalis Leonard MD Primary Care Provider Encounter Details Date Type Department Care Team Description 09/17/2021 Telephone Dermatology at [facility] Marvin Waller CMA [address] [place] [address] Social History Tobacco Use Types Packs/Day Years Used Date Never Smoker Smokeless Tobacco: Never Used Sex Assigned at Date Recorded Not on file documented as of this encounter Miscellaneous Notes Telephone Encounter - Marvin Waller CMA - 09/17/2021 3:52 PM EST Mohs consultation and preoperative note (H&P) Patient Name: Porsha Rodgers Age: 71 y.o. Date of : 1950 Today's Date: 09/17/2021 REFERRING PROVIDER: No ref. provider found CC: Mohs micrographic surgery for treatment of a cutaneous tumor HPI: Porsha Rodgers is a 71 y.o. female presenting for biopsy-proven basal cell carcinoma, nodular, location on the left jewish. The dermatologic preoperative information sheet was reviewed with pertinent positive and negative as below. DERMATOLOGIC PRE-OPERATIVE EVALUATION AND REVIEW OF SYSTEMS History of Mohs surgery? no If yes, have you ever had Mohs surgery with Dr. Henry? no Pacemaker/Defibrillator? no Joint replacement or other implantable devices (e.g. Cochlear implant)? If yes then when? no Do you take a blood thinner? Yes Aspirin History of organ transplant? no History of artificial valve or stroke? no History of liver disease or bleeding disorder? no Do you have any medical problems that may affect your upcoming surgery? no Do you have any concerns regarding your upcoming surgery? yes, scarring/cosmetic results We ask patients to discontinue Fish oil/Multivitamin/Vit E/?? supplements and natural medicines not prescribed by a physician 1 week prior to surgery. SOCIAL HISTORY: Makes Own Decisions Yes Hearing aid or other devices: No Relevant travel history or future plans: No Tobacco use (amount per day, type of tobacco): no Do you have any physical limitations that may affect your surgery?: no ALLERGIES: Allergies reviewed MEDICATIONS: Medications reviewed documented in this encounter Plan of Treatment Upcoming Encounters Date Type Specialty Care Team Description 09/29/2022 Office Visit Dermatology Concha Quinn MD [facility] [address] [place] [address] (Wo rk) documented as of this encounter Visit Diagnoses Not on filedocumented in this encounter Care Teams Television Inspector Relationship Specialty Start Date End Date Magalis Leonard MD PCP - General 01/15/[address] [place] [address] documented as of this encounter
--- OUTSIDE RECORDS SUMMARY | 2022-05-28 09:41 | XMS_ITS | Encounter Summary ---
:1950 Author Organization [place] [address] Care Team Providers Name Role Phone Magalis Leonard MD Primary Care Provider Reason for Visit Reason Comments Procedure Encounter Details Date Type Department Care Team Description 06/04/2021 Office Visit Dermatology at [facility] borrheic keratoses Marina Leroy MD [address] [place] [address] [facility]-DER[facility]OLGY [place], [place] [address] Social History Tobacco Use Types Packs/Day Years Used Date Never Smoker Smokeless Tobacco: Never Used Sex Assigned at Date Recorded Not on file documented as of this encounter Progress Notes [facility] Quinn MD - 06/04/2021 10:15 AM EDT COSMETIC DERMATOLOGY CLINIC NOTE Date of service: 06/04/2021 Porsha Rodgers : 1950 Provider: DIMPLE QUINN MD. HPI Porsha Rodgers is a 70 y.o. year old female. She/he is here today for cosmetic removal/treatment of Seborrheic Keratoses. Allergies Allergen Reactions ??? Ibuprofen CIS - Palpitations ??? Sulfa (Sulfonamide Antibiotics) CIS - Tremors/elev. temp. EXAM General: NAD, pleasant, cooperative. Skin: A focused skin examination of the trunk was performed. Significant skin findings: 1. Trunk: waxy, brown stuck-on papules ASSESSMENT/PLAN: 1. Seborrheic Keratoses - Discussed with patient that treatment/removal will be considered cosmetic, therefore insurance will not cover it and patient will be expected to pay out of pocket, in full, at time of service. Patient quoted $100.00 for procedure today. - Lesions treated with LN2 today. Patient paid $100.00 upon leaving the clinic today for the above procedure(s). Note initiated by: ADRYAN LESLIE LPN I, ADRYAN LESLIE LPN, have performed the documentation for this encounter in the presence of and acting as a scribe for DIMPLE QUINN MD. I performed the services which were documented by the scribe, and I agree with the accuracy of the documentation in this encounter. DIMPLE QUINN MD. DIMPLE QUINN MD. Section of Dermatology [facility] documented in this encounter Plan of Treatment Upcoming Encounters Date Type Specialty Care Team Description 09/29/2022 Office Visit Dermatology [facility] Quinn MD [address] [facility] [address] [place], [place] [address] (Wo rk) documented as of this encounter Visit Diagnoses Diagnosis Seborrheic keratoses documented in this encounter Care Teams Oim Consultant Relationship Specialty Start Date End Date Magalis Leonard MD PCP - General 01/15/[address] [place] [address] documented as of this encounter
--- OUTSIDE RECORDS SUMMARY | 2022-05-28 09:41 | XMS_ITS | Encounter Summary ---
:1950 [place] [address] Care Team Providers Name Role Phone Magalis Leonard MD Primary Care Provider Encounter Details Date Type Department Care Team Description 09/23/2021 Clinical Support Dermatology at [facility] Roseanna Henry Basal cell carcinoma Marina Perkins MD (BCC) of left synagogue [address] [facility] [address] [facility] [phone] [place] [address] Social History Tobacco Use Types Packs/Day Years Used Date Never Smoker Smokeless Tobacco: Never Used Sex Assigned at Date Recorded Not on file documented as of this encounter Progress Notes Nikkie Marie LPN - 09/23/2021 9:15 AM EST Mohs consultation and preoperative note (H&P) Patient Name: Porsha Rodgers Age: 71 y.o. Date of : 1950 Today's Date: 09/23/2021 REFERRING PROVIDER: No ref. provider found CC: Mohs micrographic surgery for treatment of a cutaneous tumor HPI: Porsha Rodgers is a 71 y.o. female presenting for biopsy-proven basal cell carcinoma, nodular, location on the left synagogue. The dermatologic preoperative information sheet was reviewed [...] Office Visit Dermatology Concha Quinn MD [facility] [address] [place], [place] [address] (Wo rk) documented as of this encounter Visit Diagnoses Diagnosis Basal cell carcinoma (BCC) of left templ e region documented in this encounter Care Teams Network Programmer Relationship Specialty Start Date End Date Magalis Leonard MD PCP - General 01/15/[address] [place] [address] documented as of this encounter
--- OUTSIDE RECORDS SUMMARY | 2022-05-28 09:41 | XMS_ITS | Encounter Summary ---
:1950 Author Organization [facility] [place] [address] Care Team Providers Name Role Phone Magalis Leonard MD Primary Care Provider Encounter Details Date Type Department Care Team Description [facility]/27[facility] [address] [facility] [place] [address] [facility] [phone] [place], [place] [address] (Wo rk) Social History Tobacco Use Types Packs/Day Years Used Date Never Smoker Smokeless Tobacco: Never Used Sex Assigned at Date Recorded Not on file documented as of this encounter Miscellaneous Notes Telephone Encounter - Mark Baxter LPN - 06/27/2019 11:43 AM EDT Pre-Op excision phone call Date of Call: 06/27/19 Surgical procedure to be done: OSP to a biopsy proven Surgical Pathology: A. 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 Focal dermal ??regression-related changes are also noted. The lesional cells extend towards the ??deep specimen edge along the adnexa and close to the??periphery. Spoke with Porsha Rodgers by phone to review the following. Review of allergies and medications: instructed to take all medications prior to procedure Does take a blood thinner, ASA 81 mg. Does not have any allergies to Lidocaine or epinephrine. Does not take antibiotics before dental procedures. Does not have any cardiac issues, murmurs or valve replacements. Does not have a pacemaker or defibrillator. Has not had a total joint replacement with in the past 2 years. Recommend that she is to be accompanied by someone who can drive home if needed. Discussed length of procedure and time variables. Post operative instructions reviewed including physical limitations after procedure. Phone number given should any questions or concerns arise before or after the procedure. Porsha Rodgers states that she understands all of the above. MARK BAXTER LPN documented in this encounter Plan of Treatment Upcoming Encounters Date Type Specialty Care Team Description 09/29/2022 Office Visit Dermatology Concha Quinn MD [facility] [address] [place], [place] [address] (Wo rk) documented as of this encounter Visit Diagnoses Not on filedocumented in this encounter Care Teams Inspector Quality Assurance Relationship Specialty Start Date End Date Magalis Leonard MD PCP - General 01/15/[address] [place] [address] documented as of this encounter
--- OUTSIDE RECORDS SUMMARY | 2022-05-28 09:42 | XMS_ITS | Encounter Summary ---
:1950 Author Organization [facility] [address] Care Team Providers Name Role Phone Magalis Leonard MD Primary Care Provider Encounter Details Date Type Department Care Team Description 02/22/2013 Hospital Encounter Mammography at [facility], [address] [facility] Magalis Leonard MD [address] [place] [address] [place] [address] Social History Tobacco Use Types Packs/Day Years Used Date Never Assessed Sex Assigned at Date Recorded Not on file documented as of this encounter Medications at Time of Discharge Medication Sig Dispensed Refills Start Date End Date CIS Free Text Med - All Purpose 0 02/11 Multivitamin-Min CIS Free Text Med - Metrogel 0 006 Calcium Carbonate-Vitamin D3 (CALCIUM 600 0 03/01/2006 WITH VITAMIN D3) 600 mg(1,500mg) -400 unit Cap GLUCOSAMINE HCL/CHONDRO LUNA A 0 006 (GLUCOSAMINE-CHONDROITIN ORAL) loratadine (CLARITIN) 10 mg tablet 0 0 03/01/2006 documented as of this encounter Plan of Treatment Upcoming Encounters Date Type Specialty Care Team Description 09/29/2022 Office Visit Dermatology Concha Quinn MD [facility] [address]MAT [place], [place] [address] (Wo rk) documented as of this encounter Procedures Procedure Name Priority Date/Time Associated Diagnosis Comme nts MAMMO SCREENING CAD Routine 02/22/2013 11:13 AM R esults for this BILATERAL EDT procedure are i n the results section. documented in this encounter Results Mammo digital bilateral Screening with CAD (02/22/2013 11:13 AM EDT) Anatomical Region Laterality Modality Breast Bilateral Mammography Specimen (Source) Anatomical Collection Method Collection Time Re ceived Time Location / / Volume Laterality 02/22/2013 11:13 AM EDT Narrative 02/23/2013 9:19 AM EDT Reason for Exam: Screening ?? Technique: Craniocaudal (CC) and Medio-l ateral Oblique (MLO) views of both breasts obtained with direct digital cap ture. The exam was evaluated by CAD version 8. 3.17. ?? Findings: ?? This is a negative mammogram (ACR Catego ry 1). ??There is a stable fibroglandular pattern without significa nt change from prior studies. There is no mammographic evidence of can cer. ??The breasts are of scattered density. ?? CONCLUSION: This is a NEGATIVE mammogram (ACR Catego ry 1). ?? Routine screening mammography is recomme nded with the frequency dependent upon the patient's age and breast cancer risk factors. A letter has been sent to this patient b y the breast imaging center. Procedure Note Sandrine Laboy MD - 02/23/2013Format ting of this note might be different from the original. Reason for Exam: Screening Technique: Craniocaudal (CC) and Medio-l ateral Oblique (MLO) views of both breasts obtained with direct digital cap ture. The exam was evaluated by CAD version 8. 3.17. Findings: This is a negative mammogram (ACR Catego ry 1). There is a stable fibroglandular pattern without significa nt change from prior studies. There is no mammographic evidence of can cer. The breasts are of scattered density. CONCLUSION: This is a NEGATIVE mammogram (ACR Catego ry 1). Routine screening mammography is recomme nded with the frequency dependent upon the patient's age and breast cancer risk factors. A letter has been sent to this patient b y the breast imaging center. Magalis Leonard MD IMG MAMMO ORDERABLES documented in this encounter Visit Diagnoses Not on filedocumented in this encounter Care Teams Senior Electronics Design Engineer Relationship Specialty Start Date End Date Magalis Leonard MD PCP - General 01/15/[address] [place], [place] [address] [facility] [address] [place] [address] documented as of this encounter
--- OUTSIDE RECORDS SUMMARY | 2022-05-28 09:42 | XMS_ITS | Encounter Summary ---
:1950 Author Organization [facility] [place] [address] Care Team Providers Name Role Phone Magalis Leonard MD Primary Care Provider Encounter Details Date Type Department Care Team Description 03/04/2015 Hospital Encounter Mammography at [facility], DR FANG [facility] Magalis Leonard MD [address] [place] [address] [place] [phone] Social History Tobacco Use Types Packs/Day [...] 09/29/2022 Office Visit Dermatology Concha Quinn MD [facility] [address] [place], [place] [address] (Wo rk) documented as of this encounter Procedures Procedure Name Priority Date/Time Associated Diagnosis Comme nts MAMMO SCREENING CAD Routine 03/04/2015 11:10 AM R esults for this BILATERAL EDT procedure are i n the results section. documented in this encounter Results Mammo digital bilateral Screening with CAD (03/04/2015 11:10 AM EDT) Anatomical Region Laterality Modality Breast Bilateral Mammography Specimen (Source) Anatomical Collection Method Collection Time Re ceived Time Location / / Volume Laterality 03/04/2015 11:10 AM EDT Narrative 03/05/2015 12:00 PM EDT Reason for Exam: Screening ?? Technique: Craniocaudal (CC) and Medio-l ateral Oblique (MLO) views of both breasts obtained with direct digital cap ture. ?? The exam was evaluated by CAD version 8. 3.17. ?? Findings: ?? This is a negative mammogram (ACR Catego ry 1). There is a stable fibroglandular pattern without significant change from prior studies. There is no mammographic evidence of can cer. The breasts are of scattered density. ?? CONCLUSION: This is a NEGATIVE mammogram (ACR Catego ry 1). ?? Routine screening mammography is recomme nded with the frequency dependent upon the patients age and breast cancer risk factors. ?? A letter has been sent to this patient b y the breast imaging center. Procedure Note Jennifer Wilson MD - 02/12 Reason for Exam: Screening Technique: Craniocaudal (CC) and Medio-l ateral Oblique (MLO) views of both breasts obtained with direct digital cap ture. The exam was evaluated by CAD version 8. 3.17. Findings: This is a negative mammogram (ACR Catego ry 1). There is a stable fibroglandular pattern without significant change from prior studies. There is no mammographic evidence of can cer. The breasts are of scattered density. CONCLUSION: This is a NEGATIVE mammogram (ACR Catego ry 1). Routine screening mammography is recomme nded with the frequency dependent upon the patients age and breast cancer risk factors. A letter has been sent to this patient b y the breast imaging center. Magalis Leonard MD IMG MAMMO ORDERABLES documented in this encounter Visit Diagnoses Not on filedocumented in this encounter Care Teams Rn First Assist Relationship Specialty Start Date End Date Magalis Leonard MD PCP - General 01/15/[address] [place] [address] documented as of this encounter
--- OUTSIDE RECORDS SUMMARY | 2022-05-28 09:42 | XMS_ITS | Encounter Summary ---
:1950 Author Organization [place] [address] Care Team Providers Name Role Phone Magalis Leonard MD Primary Care Provider Encounter Details Date Type Department Care Team Description 03/31/2018 Hospital [place] [facility] [place], Encounter for [facility] screening mammogram [address] [place] [address] for breast cancer [place], [place] [address] [facility] [address] [place], [place] [phone] [id number] Social History Tobacco Use Types Packs/Day Years Used Date Never Smoker Sex Assigned at Date Recorded Not on file documented as of this encounter Medications at Time of Discharge Medication Sig Dispensed Refills Start Date End Date DOCOSAHEXANOIC ACID/EPA Take by mouth. 0 (FISH OIL ORAL) b complex vitamins Capsule Take 1 capsule by 0 mouth daily. aspirin 81 mg Tablet, Take 81 mg by mouth 0 Delayed Release (E.C.) daily. ESTRADIOL (VAGIFEM VAGL) Place vaginally. 0 CIS Free Text Med - All 0 03/01/2006 Purpose Multivitamin-Min CIS Free Text Med - 0 03/01/2006 Metrogel Calcium Carbonate-Vitamin 0 03/01/2006 D3 (CALCIUM 600 WITH VITAMIN D3) 600 mg(1,500mg) -400 unit Cap GLUCOSAMINE HCL/CHONDRO LUNA 0 6 A (GLUCOSAMINE-CHONDROITIN ORAL) loratadine (CLARITIN) 10 0 03/01/2006 mg tablet UNABLE TO FIND Med Name: tumeric 0 documented as of this encounter Plan of Treatment Upcoming Encounters Date Type Specialty Care Team Description 09/29/2022 Office Visit Dermatology Concha Quinn MD [facility] [address] [address] (Wo rk) documented as of this encounter Procedures Procedure Name Priority Date/Time Associated Diagnosis Comme nts MAMMO SCREENING CAD Routine 03/31/2018 9:40 AM Encounter for R esults for this AND ADIEL BILATERAL EDT screening mammogram pr ocedure are in for breast cancer the result s section. documented in this encounter Results Mammo Screening Cad and Adiel Bilateral (03/31/2018 9:40 AM EDT) Anatomical Region Laterality Modality Breast Bilateral Mammography Specimen (Source) Anatomical Location Collection Method / Collectio n Time Received Time / Laterality Volume Narrative 03/31/2018 9:59 AM EDT BILATERAL MAMMOGRAPHY REASON FOR EXAM: Screening TECHNIQUE: CC and MLO views were obtaine d of each breast using standard 2-D mammography as well as 3-D tomosynth esis. Computer aided detection was used. This is compared with prior images . FINDINGS: There are scattered areas of f ibroglandular density. There are no suspicious microcalcifications, cain s, or areas of distortion. The pattern is stable. CONCLUSION: No mammographic evidence of malignancy. RECOMMENDATION: The [employer] and The Society of Breast Imaging recommend annual screenin g beginning at age 40 for the general female population. Screening db uld continue as long as a woman is in good health and is expected to live 1 0 more years or longer. All women should be familiar with the known benefi ts, limitations, and potential harms linked to breast cancer screening. They should also know how their breasts normally look and feel and repor t any breast changes to a health care provider right away. Some women - b ecause of their family history, a genetic tendency, or certain other facto rs - should be screened with MRIs along with mammograms. (The number of wo men who fall into this category is very small.) The patient and health care provider should discuss the patient history and decide if earlier sc reening and breast MRI are appropriate. A result letter has been sent to this maria a aguayo by the [facility]. BIRADS CATEGORY 1: NEGATIVE Magalis Leonard MD IMG MAMMO ORDERABLES documented in this encounter Visit Diagnoses Diagnosis Encounter for screening mammogram for br east cancer documented in this encounter Care Teams Control Area Operator Relationship Specialty Start Date End Date Magalis Leonard MD PCP - General 01/15/[address] [place] [address] documented as of this encounter
--- OUTSIDE RECORDS SUMMARY | 2022-05-28 09:42 | XMS_ITS | Encounter Summary ---
:1950 Author Organization [facility] [place] [address] Care Team Providers Name Role Phone Magalis Leonard MD Primary Care Provider Encounter Details Date Type Department Care Team Description 07/23/2010 Orders Only Radiology Robert Hernandez MD [facility] [place] [phone] DIAGNOSTIC RADIOLOGY [phone] [place], [place] [address] (Wo rk) Social History Tobacco Use Types Packs/Day Years Used Date Never Assessed Sex Assigned at Date Recorded Not on file documented as of this encounter Plan of Treatment Upcoming Encounters Date Type Specialty Care Team Description 09/29/2022 Office Visit Dermatology Concha Quinn MD [facility] [address] [place], [place] [address] (Wo rk) documented as of this encounter Procedures Procedure Name Priority Date/Time Associated Diagnosis Comme nts FILM LIBRARY Routine 07/23/2010 12:15 PM Results for this STORAGE ONLY MAMMO EST procedure are in the results section. documented in this encounter Results FILM LIBRARY- STORAGE ONLY MAMMO (07/23/2010 12:15 PM EST) Anatomical Region Laterality Modality Other Specimen (Source) Anatomical Collection Method Collection Time Re ceived Time Location / / Volume Laterality 07/23/2010 12:15 PM EST Narrative 10/31/2013 6:32 PM EST This is a non-reportable exam. Procedure Note Guanaco Sierra - 10/31/2013Formatting of t his note might be different from the original. This is a non-reportable exam. Roebrt Hernandez MD IM FILM LIBRARY ORDERABLES documented in this encounter Visit Diagnoses Not on filedocumented in this encounter Care Teams Vegetable I Farmworker Relationship Specialty Start Date End Date Magalis Leonard MD PCP - General 01/15/[address] [place] [address] documented as of this encounter
--- OUTSIDE RECORDS SUMMARY | 2022-05-28 09:42 | XMS_ITS | Encounter Summary ---
:1950 Author Organization [facility] Address [address] [place] [address] Care Team Providers Name Role Phone Magalis Leonard MD Primary Care Provider Reason for Visit Reason Comments Skin Check Encounter Details Date Type Department Care Team Description 12/29/2016 Office Visit Dermatology at [facility] Concha Quinn in lesion; Marina Leroy MD Seborrheic keratosis; [address] [facility] Multiple benign nevi; [place] [address] [address]au; [phone] [facility] Nevus; -DERMATOLGY Lentigines [place], [place] [address] Social History Tobacco Use Types Packs/Day Years Used Date Never Smoker Sex Assigned at Date Recorded Not on file documented as of this encounter Patient Instructions Patient Esha Gonzalez - 12/29/2016 10:00 AM EDT Treatment and Wound Care Instructions Your treatment [...] is normal. ?? Please contact the office you you notice any of the following signs of infection: increased tenderness, pain, drainage, or redness that becomes hot or hard around the wound. If you have further questions or concerns, please call the office at [phone]. If it is after 5PM, or a holiday or weekend, please call [phone] and ask for the Acid Pump Operator on-call. Seborrheic Keratoses You have been diagnosed today with Seborrheic Keratosis (SK). These are benign (non-cancerous) growths that can occur almost anywhere on the skin. They are very common. SKs can often be mistaken for a wart or a mole. SKs are usually brown, but can range in color from light schafer to black. They can measure anywhere from a fraction of an inch to larger than a half-dollar. One distinguishing feature of an SK is that they usually have a waxy, vddkl-pk-unv-skin appearance. They have been referred to as barnacles of life, because they resemble the barnacles stuck to a ship. Although it is unclear what causes an SK to develop, it is certain that they are not contagious. SKsdo have the tendency to run in families. Unless irritated, SKs do not require treatment. However, do seek an appointment if an SK starts to grow rapidly, turns black, or bleeds. You were treated today with Liquid Nitrogen. This is the most common treatment for an irritated SK. Liquid nitrogen is extremely cold, and freezes the surface of the skin, causing the lesion to flake off. Treatment with liquid nitrogen can be uncomfortable, but discomfort should subside after a coupleof hours. The area treated will look red and irritated, and it may blister up or turn dark, then fall off. This is normal! You do not need and special treatment for the area, but you may find cold compresses and/or a light application of Vaseline soothing. For best results, do not rub or pick at the healing lesion. Expected healing time is 3-4 weeks. Please contact the clinic at [phone] if the lesion has not fully resolved after 6 weeks. documented in this encounter Progress Notes Concha Quinn MD - 01/06/2017 2:06 PM EDT Radha, Biopsy shows A. Moderately atypical mole from the right scapula, which is considered benign, and no further tx is needed AND B. severely atypical mole (left inferior scapula) for which I recommend excision. Please notify pt and schedule OSP. Thank you, DTB Concha Quinn MD - 12/29/2016 10:00 AM EDT Images from the original note were not included. DERMATOLOGY NEW PATIENT CLINIC NOTE Date of service: 12/29/2016 Porsha Rodgers : 1950 Provider: Concha Quinn MD Chief Complaint Patient presents with ??? Skin Check SKIN HX: Rosacea-metrogel seborrheic keratosis Benign nevus HPI Porsha Rodgers is a 66 y.o. year old female, new to me and to dermatology. Here today for a full skinexam. Patient states she has a moderate amount of moles, none of which are worrisome. Would like brown spots on neck removed if possible. MEDS: Current Outpatient Prescriptions Medication Sig Dispense Refill ??? CIS Free Text Med - All Purpose Multivitamin-Min ??? CIS Free Text Med - Metrogel ??? Calcium Carbonate-Vitamin D3 (CALCIUM 600 WITH VITAMIN D3) 600 mg(1,500mg) - 400 unit Cap ??? GLUCOSAMINE HCL/CHONDRO LUNA A (GLUCOSAMINE-CHONDROITIN ORAL) ??? loratadine (CLARITIN) 10 mg tablet No current facility-administered medications for this visit. ADR: Ibuprofen and Sulfa (sulfonamide antibiotics) ROS General: feeling well Skin: denies other skin complaints MEDICAL HISTORY: There is no problem list on file for this patient. SOCIAL HISTORY/OCCUPATION: retired EXAM General: NAD, pleasant, cooperative Skin: Patient was asked to disrobe to the level of their comfort. A total body skin exam except for the genitalia was performed. This includes examination of the skinof the face, ears, neck, chest, axillae, left and right upper and lower extremities, hands, feet, abdomen, back, and buttocks. The genitalia, perineum, and perianal areas were not examined. Significant skin findings: A. Right scapula: 0.5 cm very dark brown irregularly bordered macule Verbal consent was given today to obtain and chart today's photos. Photos taken by Esha Moyer Clinical Scribe. B. Left inferior scapula: 0.7 cm irregularly pigmented stippled patch Verbal consent was given today to obtain and chart today's photo. Photo taken by Esha Moyer Clinical Scribcharis. C. Face, left shoulder, back, left collarbone,torso: 0.4-0.6 cm pink-brown papules/plaque with waxy stuck on appearance. D. Sun-exposed areas: 0.3-0.6cm light-brown evenly pigmented, well-demarcated macules E. Left posterior thigh: 0.8 cm brown evenly shaped, evenly pigmented macule F. Torso and extremities including the back: Multiple, medium-brown, evenly- pigmented macules and papules. All with regular pigment pattern on dermoscopy. No pigmented lesions suspicious for melanoma. G. Scattered red papules/pustules on central face with diffuse erythema and telangiectasia ASSESSMENT/PLAN: A. Nevus r/o atypia Procedure: Skin biopsy by shave technique Location: Right scapula Discussed indications for procedure and expectations including risks and benefits. Verbal consent obtained. Skin prep with alcohol. Local anesthesia with 1% xylocaine, 1/100,000 epinephrine. A sample of the lesion was removed by shave technique to the level of the dermis and submitted to Pathology. Hemostasis obtained (AlCl and/or electrocautery). There were no complications; the pt. tolerated the procedure well. The wound was dressed. Post-procedure expectations, wound care and activity restrictions were reviewed. Follow-up based on pathology results. B. Nevus r/o atypia Procedure: Skin biopsy by shave technique Location: left inferior scapula Discussed indications for procedure and expectations including risks and benefits. Verbal consent obtained. Skin prep with alcohol. Local anesthesia with 1% xylocaine, 1/100,000 epinephrine. A sample of the lesion was removed by shave technique to the level of the dermis and submitted to Pathology. Hemostasis obtained (AlCl and/or electrocautery). There were no complications; the pt. tolerated the procedure well. The wound was dressed. Post-procedure expectations, wound care and activity restrictions were reviewed. Follow-up based on pathology results. C. Seborrheic keratoses Discussed treatment options including LN2. Discussed risk of hypopigmentation and discomfort, discussed alternatives, and reviewed wound care. The patient agreed to the procedure after discussing risks/benefits/alternatives. - Patient was informed that this procedure is considered cosmetic and that this would not be coveredby insurance. - Patient quoted: $150 - Patient is aware that payment is expected in full at the time of service. Combined decision to proceed at this time. Procedure Note: Procedure: Destruction of lesions with cryotherapy. Number: 19 Location: as above Discussed procedure and expectations including risks (including risk of hypopigmentation) and benefits. Verbal consent obtained. Frozen with LN2, 15-30 second thaw time, TWICE. There were no complications; the patient tolerated the procedure well. Post-procedure expectations and wound care were reviewed. D. Lentigines - Discussed benign nature of lesion and provided reassurance. No treatment necessary at this time. E. Nevus - Discussed benign nature of lesion and provided reassurance. No treatment necessary at this time. F. Benign appearing nevi, patient reassured - Patient instructed to return to clinic for re-evaluation of area if notes change, growth, bleeding, etc. - Advised to watch for anything new or changing. G. Rosacea - erythematotelangiectatic type - Reviewed triggers for rosacea (alcohol, exercise, hot foods/drinks, spicy foods, sun exposure) andpoor response of erythema to medical managment. Discussed possible use of cover up or laser therapy including cost of laser therapy as it is a cosmetic procedure. - Continue Metrogel once daily - The nature of sun-induced photo-aging and skin cancers is discussed. Sun avoidance, protective clothing, and the use of 30-SPF broad spectrum sunscreens is advised. Observe closely for skin damage/changes, and call if such occurs. Follow up: Return to clinic in 1 year for full skin exam, or sooner if needed. A reminder letter will be sent to schedule. Patient instructed to call with questions or concerns. I am documenting this encounter acting as the scribe for and in the presence of Dr. Quinn: Nikkie Moser, POLYSOMNOGRAPHER and Esha Moyer, Clinical Scribe I performed the above scribed service and agree with the accuracy of the documentation in this encounter. Concha Quinn MD Crown Presser of Dermatology, Department of Insurance Claims RepresentativeCrown Presserhydrotherapist (Dermatopathology) [facility] documented in this encounter Plan of Treatment Upcoming Encounters Date Type Specialty Care Team Description 09/29/2022 Office Visit Dermatology Concha Quinn MD [facility] DR [address] [place] [address] (Wo rk) documented as of this encounter Procedures Procedure Name Priority Date/Time Associated Diagnosis Comme nts SPECIMEN TO Routine 12/29/2016 11:18 AM Skin lesion Results for this PATHOLOGY (NON-OR) EDT procedure are in the results section. SURGICAL PATHOLOGY Routine 12/29/2016 11:18 AM Re sults for this REPORT EDT procedure are i n the results section. documented in this encounter Results Surgical Pathology Report (12/29/2016 11:18 AM EDT) Component Value Ref Test Analysis Performed At [facility] Method Time Signature Surgical [id number] ?Location: [facility] Report The signing pathologist has (i) examined the relevant preparation(s) for the MEMORIAL specimen(s) and (ii) rendered or confirmed the diagnosis(es) . HOSPITAL LABORATORY . 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 Peripheral biopsy edges appear negative in the plane of sect ions examined. Focal involved adnexal structures extend to deep biopsy edge . B - Skin, left inferior scapula, shave biopsy: Dysplastic compound nevus with severe atypia, and focal regr ession. Peripheral biopsy edges appe ar narrowly negative in the plane of sections examined. Focal involved adnexal structures extend to deep biopsy edge . Electronically signed by: ??Kayla Kim MD Verified: ??01/04/2017 ?Dermatopathologist CLINICAL INFORMATION Specimen Submitted: A - Skin, right scapula, shave biopsy (1) B - Skin, left inferior scapula, shave biopsy (1) Clinical History: A - 0.5 cm very dark brown irregularly bordered macule B - 0.7 cm irregularly pigmented stippled patch Clinical Diagnosis: Nevus, rule out atypia x2 SPECIMEN PROCESSING A - Labeled/Fixative: A-right scapula, formalin. Quantity/Size: Single, 1.1 x 0.8 x 0.1 cm. Tissue Description: Shave of barry-white skin with a central 0.6 x 0.5 cm irregular, asymmetrical dark brown macule. Sections/Processing: The spe cimen is inked, sectioned and entirely submitted with the tips appearing in cassette (1) and the body in cassette (2) . (T2) B - Labeled/Fixative: B-left inferior scapula, formalin. Quantity/Size: Single, 1.2 x 0.9 x 0.1 cm. Tissue Description: Shave of schafer skin with a central 0 .9 x 0.7 cm irregular, asymmetrical, schafer-yellow schafer-brown macule. Sections/Processing: The spe cimen is inked, sectioned and entirely submitted with the tips appearing in cassette (1) and the body in cassette (2) . (T2) ??ejr Specimen (Source) Anatomical Collection Method Collection Time Re ceived Time Location / / Volume Laterality 12/29/2016 11:18 AM EDT Concha Quinn MD PATHOLOGY/CYTOLOGY ORDERABLE S Performing Organization Address City/State/[place] [address] Specimen to Pathology (NON-OR) (12/29/2016 11:18 AM EDT) Specimen Anatomical Collection Method Collection Time Receive d Time (Source) Location / / Volume Laterality AP Specimen 12/29/2016 11:18 12/29/2016 3:28 AM EDT PM EDT Narrative [facility] - 12/29/2016 3:28 PM EDT Specimen requisition ordered. ??Separate Pathology report to follow Resulting Agency Comment Spec In Lab Concha Quinn MD PATHOLOGY/CYTOLOGY ORDERABLE S Performing Organization Address City/[facility]/[place] [address] documented in this encounter Visit Diagnoses Diagnosis Skin lesion Unspecified disorder of skin and subcuta neous tissue Seborrheic keratosis Other seborrheic keratosis Multiple benign nevi Benign neoplasm of skin, site unspecifie d Rosacea Nevus Benign neoplasm of skin, site unspecifie d Lentigines Other dyschromia documented in this encounter Care Teams Site Auditor Relationship Specialty Start Date End Date Magalis Leonard MD PCP - General 01/15/12 [address] [place] [address] documented as of this encounter
--- OUTSIDE RECORDS SUMMARY | 2022-05-28 09:42 | XMS_ITS | Encounter Summary ---
:1950 Author Organization [facility] [place] [address] Care Team Providers Name Role Phone Magalis Leonard MD Primary Care Provider Reason for Visit Reason Comments Nevus excision dysplastic nevus le ft inferior scapula Encounter Details Date Type Department Care Team Description 01/28/2017 [facility] Dysplastic nevus of Road MD Rad trunk (Primary Dx) [address] [facility] [address] [facility] [phone] [address]-DERMATOL[address] [place] [address] Social History Tobacco Use Types Packs/Day Years Used Date Never Smoker Sex Assigned at Date Recorded Not on file documented as of this encounter Last Filed Vital Signs Vital Sign Reading Time Taken Comments Blood Pressure 108/70 01/28/2017 12:52 PM EDT Pulse 67 01/28/2017 12:52 PM EDT Temperature - - Respiratory Rate - - Oxygen Saturation - - Inhaled Oxygen Concentration - - Weight - - Height - - Body Mass Index - - documented in this encounter Patient Instructions Patient InstructionsKelley Graham LPN - 01/28/2017 1:00 PM EDT Section of Dermatology POST OPERATIVE INSTRUCTIONS Wash your hand before changing the dressing. The dressing on the site should remain in place and dry until The dressing should then be removed gently After removing the dressing, daily wound care should be performed as follows: Clean the wound with warm water and pat dry Apply either Vaseline or Aquaphor Ointment Cover the wound with a new dressing such as Telfa and Tape, or a Band-Aid Do not use peroxide or Antibiotic cream or ointment on the wound For discomfort, you may take Tylenol or other non-aspirin pain medication. You may use an ice pack for discomfort, 15 minutes on and off for the next 48 hours If bleeding should occur, pressure should be applied constantly for 15 minutes on the dressing with the help of a towel, wash cloth, or piece of gauze. The sutures should be removed in 12 -14 days. It is important that you avoid strenuous and/or vigorous activities, heavy lifting (More than 5-10 lbs), and bending for a period of 2 weeks If you have questions, please contact the office of Concha Quinn MD during the day at [phone] Nurse: Kelley [phone] Ar[place] After 5 PM and on weekends, please call the hospital number , and ask for the Smutter instructor extension work. documented in this encounter Progress Notes Concha Quinn MD - 02/02/2017 8:26 AM EDT Radha, Excision shows scar, there is no residual dysplastic nevus. Please notify patient and check on wound healing. Thank you, DTB Concha Quinn MD - 01/28/2017 1:00 PM EDT Dermatology Procedure note: Attending: Concha Quinn MD Care Trainer: Kelley Graham LPN ? Y/N? Are you taking any blood thinners?? ? Yes, Aspirin 81 mg daily Pacemaker or defibrillator?? ? N Heart valves? ? N Joints? N Antibiotics prior to procedures?? ? N If yes: Time taken?? ? Allergy to local anesthetics? ? N ? Allergy to latex?? ? N ?, Vitals: 01/28/17 1252 BP: 108/70 Pulse: 67 Pathology: B - Skin, left inferior scapula, shave biopsy: Dysplastic compound nevus with severe atypia, and focal regression. Peripheral biopsy edges appear narrowly negative in the plane of sections examined. Focal involved adnexal structures extend to deep biopsy edge. I explained the diagnosis to the patient and recommend an excision of the lesion for diagnosis and/or treatment. I explained all treatment options and risks of the procedure to the patient and obtainedwritten consent. Potential complications include, but not limited to: scar, bleeding, infection, incomplete removal, nerve damage, damage to surrounding structures, dehiscence and need for further procedures. ? A time out was performed. The patient was prepared and draped sterilely in the usual manner and anesthesia was administered by local infiltration. An fusiform excision was drawn around the lesion, and the margins were incised to the level of the subcutaneous fat. The tissue was removed with sharp and blunt dissection. The lateral margins of the resulting defect were undermined with sharp and blunt dissection and hemostasis was achieved with electrocautery. The deeper layers of the defect including subcutaneous fat were approximated to reduce tension. A layered wound closure was performed. The woundwas cleaned, dried, vaseline was applied and the wound covered with a pressure dressing. The patientwas given detailed verbal and written instructions on post-operative care. ? In the event of a suspected infection (e.g. pus formation, fever, redness), the patient knows to call the clinic or the on-call associate professor of engineering over the weekend. ??? Name of Procedure? ? Excision with intermediate layered closure Location? ?? Left inferior scapula Diagnosis? ?? dysplastic nevus Size (maximal) (cm)? ?? 1.0 cm Margins (cm)? 0.3 cm ? Size + Margins (cm)? ? 1.6 cm ? 1% lidocaine with epinephrine? 9.0 cc? Suture (adipose/dermis)? 4-0 Monocryl? Suture (epidermis)? 4-0 Prolene? Final wound length? 4.1 cm? Suture removal? 12-14 days? documented in this encounter Plan of Treatment Upcoming Encounters Date Type Specialty Care Team Description 09/29/2022 Office Visit Dermatology Concha Quinn MD [facility] [address] [place], [place] [address] (Wo rk) documented as of this encounter Procedures Procedure Name Priority Date/Time Associated Diagnosis Comme nts SPECIMEN TO Routine 01/28/2017 1:14 PM Dysplastic nevus of Re sults for this PATHOLOGY (NON-OR) EDT trunk procedure are in the results section. SURGICAL PATHOLOGY Routine 01/28/2017 1:14 PM Res ults for this REPORT EDT procedure are i n the results section. documented in this encounter Results Surgical Pathology Report (01/28/2017 1:14 PM EDT) Component Value Ref Test Analysis Performed At [facility] Method Time Signature Surgical [id number] ?Location: [facility] Report The signing pathologist has (i) examined the relevant preparation(s) for the MEMORIAL specimen(s) and (ii) rendered or confirmed the diagnosis(es) . HOSPITAL LABORATORY . ?Surgic al Pathology DIAGNOSIS Skin, left inferior scapula, excision: ?? 1. ??Scar, consistent with prior surgical procedure. ?? 2. ??There is no residual dysplastic nevus. Electronically signed by: ??Jesús CURIEL, PhD, Judith Verified: ??01/29/2017 ?Dermatopathologist CLINICAL INFORMATION Specimen Submitted: A - Skin, left inferior scapula, excision (1) Clinical History: 1.0 cm pink scar, see pathology [id number] Clinical Diagnosis: Dysplastic nevus SPECIMEN PROCESSING A - Labeled/Fixative: Left inferior scapula, formalin. Quantity/Size: Single, report 5 x 1.4 x 0.6 cm. Tissue Description: An ellip se of wrinkled, pink-schafer skin with a central 0.9 x 0.6 cm ovoid umbilicated scar. Sections/Processing : The specimen is inked and serially sec tioned. The ends are submitted in (1); the remainder in (2-5). (T5) ??ejr Specimen (Source) Anatomical Collection Method Collection Time Re ceived Time Location / / Volume Laterality 01/28/2017 1:14 PM EDT Concha Quinn MD PATHOLOGY/CYTOLOGY ORDERABLE S Performing Organization Address City/[facility]/[place] [address] Specimen to Pathology (NON-OR) (01/28/2017 1:14 PM EDT) Specimen Anatomical Collection Method Collection Time Receive d Time (Source) Location / / Volume Laterality AP Specimen 01/28/2017 1:14 PM 7 3:46 EDT PM EDT Narrative [facility] - 01/28/2017 3:46 PM EDT Specimen requisition ordered. ??Separate Pathology report to follow Resulting Agency Comment Spec In Lab Concha Quinn MD PATHOLOGY/CYTOLOGY ORDERABLE S Performing Organization Address City/[facility]/[place] [address] documented in this encounter Visit Diagnoses Diagnosis Dysplastic nevus of trunk - Primary Benign neoplasm of skin of trunk, except scrotum documented in this encounter Care Teams Tongue And Groove Machine Operator Relationship Specialty Start Date End Date Magalis Leonard MD PCP - General 01/15/[address] [place] [address] [address] [place] [address] documented as of this encounter
--- OUTSIDE RECORDS SUMMARY | 2022-05-28 09:42 | XMS_ITS | Encounter Summary ---
:1950 Author Organization [facility] [place] [address] Care Team Providers Name Role Phone Magalis Leonard MD Primary Care Provider Encounter Details Date Type Department Care Team Description 02/28/2014 Hospital Encounter Mammography at [facility], [facility] Magalis Leonard MD [address] [place] [address] [place] [address] Social History Tobacco Use Types Packs/Day [...] 09/29/2022 Office Visit Dermatology Concha Quinn MD [facility] [address] [place], [place] [address] (Wo rk) documented as of this encounter Procedures Procedure Name Priority Date/Time Associated Diagnosis Comme nts MAMMO SCREENING CAD Routine 02/28/2014 11:23 AM R esults for this BILATERAL EDT procedure are i n the results section. documented in this encounter Results Mammo digital bilateral Screening with CAD (02/28/2014 11:23 AM EDT) Anatomical Region Laterality Modality Breast Bilateral Mammography Specimen (Source) Anatomical Collection Method Collection Time Re ceived Time Location / / Volume Laterality 02/28/2014 11:23 AM EDT Narrative 02/28/2014 3:43 PM EDT Reason for Exam: Screening ?? [...] y the breast imaging center. Procedure Note Robert Hernandez MD - 02/28/2014Format ting of this note might be different [...] on filedocumented in this encounter Care Teams Phys Assistant Relationship Specialty Start Date End Date Magalis Leonard MD PCP - General 01/15/[address] [place] [address] documented as of this encounter
--- OUTSIDE RECORDS SUMMARY | 2022-05-28 09:42 | XMS_ITS | Encounter Summary ---
:1950 Author Organization [facility] [place] [address] Care Team Providers Name Role Phone Magalis Leonard MD Primary Care Provider Reason for Visit Reason Onset Date Comments Appointment 01/07/2017 Encounter Details Date Type Department Care Team Description 01/07/2017 Telephone Dermatology at [facility] Concha Walters MD Appointment [address] [place] [address] [facility] [phone] [place], [place] [address] (Wo rk) Social History Tobacco Use Types Packs/Day Years Used Date Never Smoker Sex Assigned at Date Recorded Not on file documented as of this encounter Miscellaneous Notes Telephone Encounter - Lesly Lackey - 01/11/2017 9:00 AM EDT I have scheduled this excision for Porsha Rodgers on 01/28 at 1:00 (she requested this date) Telephone Encounter - Lesly Lackey - 01/07/2017 3:45 PM EDT I left a voicemail for Porsha Rodgers requesting a call back to schedule an excision of an atypical mole left inferior scapula. Telephone Encounter - Lesly Lackey - 01/07/2017 3:45 PM EDT ----- Message from Mark Baxter LPN sent at 01/07/2017 9:26 AM EDT ----- Spoke with patient. Per Dr. Quinn: Biopsy shows A. Moderately atypical mole from the right scapula,which is considered benign, and no further tx is needed. Biopsy B. severely atypical mole (left inferior scapula) for which I recommend excision. I discussed the nature of a severely atypical mole. Patient verbalized understanding and reports she is healing well. Message routed to Lesly for scheduling. I encouraged patient to call our clinic with any questions or concerns. MARK BAXTER LPN documented in this encounter Plan of Treatment Upcoming Encounters Date Type Specialty Care Team Description 09/29/2022 Office Visit Dermatology Concha Quinn MD [facility] [address] [place], [place] [address] (Wo rk) documented as of this encounter Visit Diagnoses Not on filedocumented in this encounter Care Teams Crumb Packer Relationship Specialty Start Date End Date Magalis Leonard MD PCP - General 01/15/[address] [place] [address] documented as of this encounter
--- OUTSIDE RECORDS SUMMARY | 2022-05-28 09:42 | XMS_ITS | Encounter Summary ---
:1950 Author Organization [facility] [address] Care Team Providers Name Role Phone Magalis Leonard MD Primary Care Provider Encounter Details Date Type Department Care Team Description 03/31/2018 Office Visit Dermatology at [facility] ([address] MD Rad keratosis) [address] [place] [address] [facility], [place] [address] Social History Tobacco Use Types Packs/Day Years Used Date Never Smoker Sex Assigned at Date Recorded Not on file documented as of this encounter Progress Notes Concha Quinn MD - 03/31/2018 11:15 AM EDT See medical note. SK #10. documented in this encounter Plan of Treatment Upcoming Encounters Date Type Specialty Care Team Description 09/29/2022 Office Visit Dermatology Concha Quinn MD [facility] [place], [place] [address] (Wo rk) documented as of this encounter Visit Diagnoses Diagnosis SK (seborrheic keratosis) Other seborrheic keratosis documented in this encounter Care Teams Manager Statistics Relationship Specialty Start Date End Date Magalis Leonard MD PCP - General 01/15/[address] [place] [address] documented as of this encounter
--- OUTSIDE RECORDS SUMMARY | 2022-05-28 09:42 | XMS_ITS | Encounter Summary ---
:1950 Author Organization [facility] [place] [address] Care Team Providers Name Role Phone Magalis Leonard MD Primary Care Provider Encounter Details Date Type Department Care Team Description 02/24/2012 Hospital Encounter Mammography at [facility] Magalis Leonard MD [address] [place] [address] [place] [address] Social History Tobacco Use Types Packs/Day [...] Visit Dermatology Concha Quinn MD [facility] [address] [place], [place] [address] (Wo rk) documented as of this encounter Procedures Procedure Name Priority Date/Time Associated Diagnosis Comme nts MAMMO SCREENING CAD Routine 02/24/2012 10:05 AM R esults for this BILATERAL EDT procedure are i n the results section. documented in this encounter Results MAMMO DIGITAL BILATERAL SCREENING WITH CAD (02/24/2012 10:05 AM EDT) Anatomical Region Laterality Modality Breast Bilateral Mammography Specimen (Source) Anatomical Collection Method Collection Time Re ceived Time Location / / Volume Laterality 02/24/2012 10:05 AM EDT Narrative 02/25/2012 10:01 AM EDT Reason for Exam: Screening ?? Technique: Craniocaudal (CC) and Medio-l ateral Oblique (MLO) views of both breasts obtained with direct digital cap ture. The exam was evaluated by CAD version 8. 3.17. ?? Findings: ?? This is a negative mammogram (ACR Catego ry 1). ??There is an unremarkable fibroglandular pattern in the breasts. ? ? There is no mammographic evidence of can cer. ??The breasts are of scattered density. ?? CONCLUSION: This is a NEGATIVE mammogram (ACR Catego ry 1). ?? Routine screening mammography is recomme nded with the frequency dependent upon the patient's age and breast cancer risk factors. A letter has been sent to this patient b y the breast imaging center. Procedure Note Genna Echevarria MD - 02/25/2012Forma tting of this note might be different from the original. Reason for Exam: Screening Technique: Craniocaudal (CC) and Medio-l ateral Oblique (MLO) views of both breasts obtained with direct digital cap ture. The exam was evaluated by CAD version 8. 3.17. Findings: This is a negative mammogram (ACR Catego ry 1). There is an unremarkable fibroglandular pattern in the breasts. There is no mammographic evidence of can [...] on filedocumented in this encounter Care Teams Paint Brush Maker Relationship Specialty Start Date End Date Magalis Leonard MD PCP - General 01/15/[address] [place] [address] documented as of this encounter
--- OUTSIDE RECORDS SUMMARY | 2022-05-28 09:42 | XMS_ITS | Encounter Summary ---
:1950 Author Organization [facility] [place] [address] Care Team Providers Name Role Phone Magalis Leonard MD Primary Care Provider Reason for Visit Reason Comments Skin Check Encounter Details Date Type Department Care Team Description 03/31/2018 Office Visit Dermatology at [facility] (seborrheic keratosis); Marina Leroy MD History of dysplastic nevus; [address] [facility] Multiple benign nevi; [place] [address] [place]; [phone] [facility] [place], [place] [address] Social History Tobacco Use Types Packs/Day Years Used Date Never Smoker Sex Assigned at Date Recorded Not on file documented as of this encounter Progress Notes Concha Quinn MD - 03/31/2018 11:00 AM EDT DERMATOLOGY ESTABLISHED PATIENT CLINIC NOTE Date of service: 03/31/2018 Porsha Rodgers : 1950 Provider: Concha Quinn MD Chief Complaint Patient presents with ??? 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 Peripheral biopsy edges appear negative in the plane of sections examined. Focal involved adnexal structures extend to deep biopsy edge. B - Skin, left inferior scapula, shave biopsy: Dysplastic compound nevus with severe atypia, and focal regression. Peripheral biopsy edges appear narrowly negative in the plane of sections examined. Focal involved adnexal structures extend to deep biopsy edge. - Excised by Dr. Quinn on 01/28/17 Preferred name: Porsha Preferred method of contact for results: Cell Phone OK to leave detailed message including biopsy results?: Yes HPI Porsha Rodgers is a 67 y.o. year old female, established patient last seen by me on 01/28/18 for OSP.Here today for a full skin examination. Patient denies any significant changes in her health since her last visit. She denies any new skin concerns. MEDS: Current Outpatient Prescriptions Medication Sig Dispense Refill ??? DOCOSAHEXANOIC ACID/EPA (FISH OIL ORAL) Take by mouth. ??? b complex vitamins Capsule Take 1 capsule by mouth daily. ??? aspirin 81 mg Tablet, Delayed Release (E.C.) Take 81 mg by mouth daily. ??? ESTRADIOL (VAGIFEM VAGL) Place vaginally. ??? CIS Free Text Med - All Purpose Multivitamin-Min ??? CIS Free Text Med - Metrogel ??? GLUCOSAMINE HCL/CHONDRO LUNA A (GLUCOSAMINE-CHONDROITIN ORAL) ??? loratadine (CLARITIN) 10 mg tablet ??? UNABLE TO FIND Med Name: tumeric ??? Calcium Carbonate-Vitamin D3 (CALCIUM 600 WITH VITAMIN D3) 600 mg(1,500mg) - 400 unit Cap (Patient not taking: No sig reported) No current facility-administered medications for this visit. ADR: Allergies Allergen Reactions ??? Ibuprofen CIS - Palpitations ??? Sulfa (Sulfonamide Antibiotics) CIS - Tremors/elev. temp. ROS General: feeling well Skin: denies other skin complaints EXAM General: NAD, pleasant, cooperative Skin: Patient was asked to disrobe to the level of their comfort. A total body skin exam except for areas covered by underwear was performed. This includes examination of the skin of the face, ears, neck, chest, axillae, left and right upper and lower extremities, hands and feet, abdomen, and except the areas covered by underwear were not examined. Significant skin findings: A. Sun exposed areas: 0.3-0.6cm light-brown evenly pigmented, well-demarcated macules B. Back, right gnosticist, base of neck, abdomen : Multiple 0.4-0.6cm brown papules with waxy, stuck-on appearance. Milia-like cysts, comedone-like openings and/or fissuring on dermoscopy. (Total: 10) C. Scattered on the torso and extremities: Multiple, 0.3-0.5cm, medium-brown, evenly-pigmented macules and papules. All with regular pigment pattern on dermoscopy. No pigmented lesions suspicious for melanoma. D. Face: Scattered red papules/pustules on central face with diffuse erythema and telangiectasia E. Well healed hypopigmented scars per sites above, NER. ASSESSMENT/PLAN: A. Lentigines - Discussed benign nature of lesion and provided reassurance. No treatment necessary at this time. B. Seborrheic Keratoses - Etiology discussed - Patient reassured lesions are benign in nature - Explained that these are hereditary, adult onset and acquired. - Treatment of an asymptomatic seborrheic keratosis is considered a cosmetic procedure and is not covered by insurance. - Patient quoted $100.00 and elected to continue to cosmetic treatment today. Procedure Note: Procedure: Destruction of lesion(s) with cryotherapy. Number: 10 Location: as above Discussed procedure and expectations including risks (including risk of hypopigmentation) and benefits. Verbal consent obtained. Frozen with LN2, 15-30 second thaw time, TWICE. There were no complications; the patient tolerated the procedure well. Post-procedure expectations and wound care were reviewed. - Cosmetic Charge: $100.00 patient paid upon exiting the clinic today. C. Benign Appearing Nevi - Discussed benign nature of lesion and provided reassurance. No treatment necessary at this time. D. Rosacea - Reviewed triggers for rosacea (alcohol, exercise, hot foods/drinks, spicy foods, sun exposure) andpoor response of erythema to medical managment.?? Discussed possible use of cover up or laser therapy including cost of laser therapy??as it is a cosmetic procedure. - Continue Metrogel once daily. - Patient quoted $350.00 for laser treatment (V-Beam), patient will call should she wish to schedule. E. H/O DN - NER, will continue to monitor. Follow up: 1 year for a full skin examination, sooner if needed. Reminder placed in the system to schedule. Instructed to call with questions or concerns. I am documenting this encounter acting as the scribe for and in the presence of Dr. Quinn: MARK BAXTER LPN I performed the above scribed service and agree with the accuracy of the documentation in this encounter. Concha Quinn MD Audio Engineer of Dermatology, Department of Surgery [facility] documented in this encounter Plan of Treatment Upcoming Encounters Date Type Specialty Care Team Description 09/29/2022 Office Visit Dermatology Concha Quinn MD [facility] [address] [place], [place] [address] (Wo rk) documented as of this encounter Visit Diagnoses Diagnosis SK (seborrheic keratosis) Other seborrheic keratosis History of dysplastic nevus Personal history of diseases of skin and subcutaneous tissue Multiple benign nevi Benign neoplasm of skin, site unspecifie d Lentigines Other dyschromia Rosacea documented in this encounter Care Teams Engineering Professionals Relationship Specialty Start Date End Date Magalis Leonard MD PCP - General 01/15/[address] [place] [address] documented as of this encounter
--- OUTSIDE RECORDS SUMMARY | 2022-05-28 09:42 | XMS_ITS | Encounter Summary ---
:1950 Author Organization [facility] Address [facility] [place] [address] Care Team Providers Name Role Phone Magalis Leonard MD Primary Care Provider Encounter Details Date Type Department Care Team Description 05/08/2016 Hospital Encounter Mammography at [facility] Magalis Leonard, Encounter for [facility] screening mammogram Drive [address] [place] [address] for breast cancer [place], [place] [address] [address] [place], [place] [phone] [address] Social History Tobacco Use Types Packs/Day Years [...] 09/29/2022 Office Visit Dermatology Concha Quinn MD [facility] [address] [place], [place] [address] (Wo rk) documented as of this encounter Procedures Procedure Name Priority Date/Time Associated Diagnosis Comme nts MAMMO SCREENING CAD Routine 05/08/2016 10:25 AM Encounter for Results for this AND YONAS BILATERAL EDT screening mammogram pr ocedure are in for breast cancer the result s section. documented in this encounter Results Mammo Screen CAD and Yonas Bilat (Generic) (05/08/2016 10:25 AM EDT) Anatomical Region Laterality Modality Breast Bilateral Mammography Specimen (Source) Anatomical Location Collection Method / Collectio n Time Received Time / Laterality Volume Narrative 05/08/2016 12:48 PM EDT BILATERAL MAMMOGRAPHY REASON FOR EXAM: Screening [...] No mammographic evidence of malignancy. RECOMMENDATION: [employer] and The Society of [...] cancer documented in this encounter Care Teams Rack Puller Relationship Specialty Start Date End Date Magalis Leonard MD PCP - General 01/15/[address] [place] [address] documented as of this encounter
--- OUTSIDE RECORDS SUMMARY | 2022-05-28 09:42 | XMS_ITS | Encounter Summary ---
:1950 Author Organization [facility] [place] [address] Care Team Providers Name Role Phone Magalis Leonard MD Primary Care Provider Encounter Details Date Type Department Care Team Description 02/03/2017 Telephone Dermatology at [facility] Concha Quinn MD [address] [place] [address] [facility] [phone] [place], [place] [address] (Wo rk) Social History Tobacco Use Types Packs/Day Years Used Date Never Smoker Sex Assigned at Date Recorded Not on file documented as of this encounter Miscellaneous Notes Telephone Encounter - Mark Baxter LPN - 02/04/2017 2:03 PM EDT Spoke with patient regarding biopsy results. See result note. MARK BAXTER LPN Telephone Encounter - Haily Yap - 02/04/2017 9:03 AM EDT I received a call form Porsha Rodgers returning your call and best number to reach her back is [phone]. Telephone Encounter - Prema Santos - 02/03/2017 3:06 PM EDT Pt returned your call. documented in this encounter Plan of Treatment Upcoming Encounters Date Type Specialty Care Team Description 09/29/2022 Office Visit Dermatology Concha Quinn MD [facility] [address] [place], [place] [address] (Wo rk) documented as of this encounter Visit Diagnoses Not on filedocumented in this encounter Care Teams Ruby On Rails Consultant Relationship Specialty Start Date End Date Magalis Leonard MD PCP - General 01/15/[address] [place] [address] documented as of this encounter
--- OUTSIDE RECORDS SUMMARY | 2022-05-28 09:42 | XMS_ITS | Encounter Summary ---
:1950 Author Organization [facility] Address [facility] [place] [address] Care Team Providers Name Role Phone Magalis Leonard MD Primary Care Provider Reason for Visit Reason Comments Skin Check Encounter Details Date Type Department Care Team Description 05/09[facility]; Marina Leroy MD SK (seborrheic keratosis); [address] [facility] Macular seborrheic keratosis ; [place] [address] [place] [phone] [facility] [place], [place] [address] Social History Tobacco Use Types Packs/Day Years Used Date Never Smoker Smokeless Tobacco: Never Used Sex Assigned at Date Recorded Not on file documented as of this encounter Patient Instructions Patient InstructionsMark Baxter LPN - 05/09/2019 2:00 PM EDT Treatment and Wound Care Instructions Your [...] or concerns, please call the office at [phone]. If it is after 5PM, or a holiday or weekend, please call [phone] and ask for the Field Marketing Director on-call. documented in this encounter Progress Notes Concha Quinn MD - 05/09/2019 2:00 PM EDT Images from the original note were not included. DERMATOLOGY ESTABLISHED PATIENT CLINIC NOTE Date of service: 05/09/2019 Porsha Rodgers : 1950 Provider: Concha Quinn MD Chief Complaint Patient presents with ??? Skin Check SKIN HISTORY: Rosacea-metrogel Seborrheic keratosis Benign nevus ?? 12/29/16 DIAGNOSIS A - Skin, right scapula, [...] - Excised by Dr. Quinn on 01/28/17 ?? Preferred name: Porsha Preferred method of contact for results: Cell Phone OK to leave detailed message including biopsy results?: Yes Are there any other people with whom we may discuss your care with? , Luis Preferred Pharmacy? [facility] in [place] Allergy to Lidocaine or Epinephrine? No Pacemaker or Defibrillator? No HPI Porsha Rodgers is a 68 y.o. year old female, established patient last seen by me on 03/31/18. Here today for a full skin examination. Patient reports a hard, white, lesion on the nasal tip that comes and goes. MEDS: Current Outpatient Medications Medication Sig Dispense Refill ??? DOCOSAHEXANOIC ACID/EPA (FISH OIL ORAL) Take by mouth. ??? UNABLE TO FIND Med Name: tumeric ??? b complex vitamins Capsule Take 1 [...] pleasant, cooperative Skin: Patient was asked to undress to the level of her comfort. Verbalized that the provider's preference is for the patient to remove all clothing and that the provider will not examine areas patient elects to keep covered. Patient's decision was to remove bra and underwear for a total body skin exam. This includes examination of the scalp, hair, face, ears, neck, chest, breasts, abdomen, back, axillae, upper and lower extremities, hands, and feet. Buttocks and genitalia were examined with patient's consent. Significant skin findings: A. Left posterior lateral thigh: 0.9cm very dark brown patch [Figure 1, Specimen A] Figure 1. A Left posterior lateral thigh Photo taken and charted with patient consent B. Trunk and extremities: Multiple 0.3-0.5 cm medium-brown, evenly-pigmented macules and papules. All with regular pigment pattern on dermoscopy. No pigmented lesions suspicious for melanoma. C. Left cheek, trunk, and extremities: Brown papule/plaques with waxy stuck-on appearance. D. Nasal tip: clear on examination E. Extremities: Thin, schafer, well-demarcated, stuck-on plaques. F. Sun-exposed areas of the trunk and extremities: Scattered 0.3-0.6 cm light- brown, evenly pigmented, well-demarcated macules. ASSESSMENT/PLAN: A. Nevus R/O Atypia - Growing over time (0.8cm in 2017) - Preferred method of contact: phone call Procedure: Skin biopsy by shave technique Location: Left posterior lateral thigh Time: 2:18PM Discussed indications for procedure and expectations including [...] reviewed. Follow-up based on pathology results. B. Benign-Appearing Nevi - No atypical lesions or features worrisome for malignancy. - Advised patient to watch for anything new or changing. Discussed changes (bleeding, pain, change in color or shape) that should prompt re-evaluation.?? - Will continue to monitor. C. Seborrheic Keratoses - Etiology discussed - Patient reassured that benign in nature - Treatment of an asymptomatic seborrheic keratosis is considered a cosmetic procedure and is not covered by insurance. D. No primary lesion - Advised patient to RTC for re-evaluation if - Advised patient to watch for anything new or changing. Discussed changes (bleeding, pain) that should prompt re-evaluation.?? E. Macular Seborrheic Keratoses - Discussed benign nature of lesion(s) and provided reassurance. No treatment necessary at this time. F. Lentigines - Discussed benign nature of lesions and provided reassurance. No treatment necessary at this time. - Discussed nature of sun-induced photo-aging and skin cancers. Advised sun avoidance, protective clothing, and use of SPF 30+ broad-spectrum sunscreens. - Instructed patient to observe closely for skin damage/changes and call if such occur. Follow up: 1 year for follow up and full skin exam, sooner if needed. Reminder placed in system to schedule. Instructed to call with questions or concerns. I am documenting this encounter acting as the scribe for and in the presence of Dr. Quinn: MARK BAXTER LPN and Korin Joseph I performed the above scribed service and agree with the accuracy of the documentation in this encounter. Concha Quinn MD Decontamination Technician of Dermatology, Department of Surgery [facility] Concha Quinn MD - 05/09/2019 2:00 PM EDT Radha, Biopsy shows severely atypical nevus. Recommend excision. Please notify pt and schedule OSP. Thank you, DTB Mark Baxter LPN - 05/09/2019 2:00 PM EDT Spoke with patient regarding her recent biopsy result from the left posterior lateral thigh. Per : Biopsy shows severely atypical nevus, recommend excision. I reviewed the nature of an atypical nevus as well as the excision procedure, including the post op physical restrictions. Patient verbalized understanding and is in agreement with this plan. She reports she is healing well from the biopsy and denies any questions or concerns at this time. Message routed to ET to schedule OSP. Patient reports she will be going out of town the week of the 06 of June. MARK BAXTER LPN Mark Baxter LPN - 05/09/2019 2:00 PM EDT OSP scheduled for 06/27/19. Mark Baxter LPN - 05/09/2019 2:00 PM EDT Excision performed to the severely atypical nevus on the left posterior lateral thigh on 06/27/19. MARK BAXTER LPN documented in this encounter Plan of Treatment Upcoming Encounters Date Type Specialty Care Team Description 09/29/2022 Office Visit Dermatology Concha Quinn MD [facility] [address] [facility] [place], [place] [address] (Wo rk) documented as of this encounter Procedures Procedure Name Priority Date/Time Associated Diagnosis Comme nts SURGICAL PATHOLOGY Routine 05/09/2019 3:52 PM Res ults for this REPORT EDT procedure are i n the results section. SPECIMEN TO Routine 05/09/2019 3:52 PM Neoplasm of Results f or this PATHOLOGY EDT uncertain behavior procedure are in the results section. documented in this encounter Results Surgical Pathology Report (05/09/2019 3:52 PM EDT) Component Value Ref Test Analysis Performed At [facility] Range Method Time Signature Surgical [id number] ? Location: [facility] Pathology ERWINNA Report The signing pathologist has (i) examined the relevant preparation(s) for the [facility]ORIAL specimen(s) and (ii) rendered or confirmed the diagnosis(es) . HOSPITAL [facility] . ?Surgic al Pathology DIAGNOSIS A. 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 of Pathology, [place], [place] DISCUSSION The lesion is broad with pro minent lentiginous and partially nested growth, increase in cellularity, adnexal inv olvement and scattered pagetoid melanocytes. Focal dermal regression-related changes are also noted. The lesional cells ? extend towards the deep specimen edge along the adnexa and close to the periph barber. ADDITIONAL STUDIES Multiple step-leveled sections were revi ewed. Melan-A highlights the extent of melanocytic proliferation. Immunohistochemistry Studies: Formalin-fixed, paraffin-emb edded tissue sections are studied using the polymer technique with appropriate positive and negative controls. ?These IHC studies provide the pathologist wit h adjunctive diagnostic information. Antibody specificity has been verified by testin g antibodies on a series of in-house tissues with known immunohistochemical perform ance characteristics. The clinical interpretation of any antibody positive stain ing or its absence is evaluated within the context of clinical presentation, morp hology, histopathological criteria and other diagnostic tests. CLINICAL INFORMATION Specimen Submitted: A - Skin, left posterior lateral thigh, shave biopsy (1) Clinical History and Diagnosis: 0.9 cm very dark brown patch; nevus, rule out atypia SPECIMEN PROCESSING A - Labeled/Fixative: Patient demographics, formalin. Quantity/Size: ??Single, 1.1 x 0.9 x 0.1 cm. Tissue Description: Shave of schafer skin with a central 0 .9 x 0.8 cm irregular, asymmetrical dark brown macule. Sections/Processing: Inked, serially sectioned and entirely submitted in 2 noris ettes as follows: ?A1: ??Tips ?A2: ??Body ??ejr Specimen (Source) Anatomical Collection Method Collection Time Re ceived Time Location / / Volume Laterality 05/09/2019 3:52 PM EDT Concha Quinn MD PATHOLOGY/CYTOLOGY ORDERABLE S Performing Organization Address City/State/[place] [address] Specimen to Pathology (05/09/2019 3:52 PM EDT) Specimen Anatomical Collection Method Collection Time Receive d Time (Source) Location / / Volume Laterality AP Specimen 05/09/2019 3:52 PM 201 9 EDT 10:52 AM EDT Narrative [facility] - 05/10/2019 10:52 AM EDT Specimen requisition ordered. 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
--- OUTSIDE RECORDS SUMMARY | 2022-05-28 09:45 | XMS_ITS | Encounter Summary ---
:1950 Author Organization [facility] Address [address] [place] [address] Care Team Providers Name Role Phone Magalis Leonard MD Primary Care Provider Encounter Details Date Type Department Care Team Description 03/02/2000 Results Only [facility] - Jewel Fernandez MD conversion [address] [place] [address] Social History Tobacco Use Types Packs/Day Years Used Date Never Assessed Sex Assigned at Date Recorded Not on file documented as of this encounter Plan of Treatment Not on filedocumented as of this encounter Procedures Procedure Name Priority Date/Time Associated Diagnosis Comme nts CYTOPATHOLOGY Routine 03/02/2000 0:00 EDT Results for this procedure are i n the results section . documented in this encounter Results CYTOPATHOLOGY (03/02/2000 0:00 EDT) Pathology Report: CYTOPATHOLOGY REPORT [facility] Reports generated via electronic interface contain yasmene ginal data; however they are lacking the format of the original re port. Caution should be taken when reading/interpreting unfo rmatted reports. Name: ? RENZO RODGERS ? Accession #: ? [id number] : ? 1950 (Age: 49) ??F ?Collect Date: ? 02/12 Location: ? [facility] ? Receive Date : ? 03/04/2000 Provider: ?JEWEL PEDROZA MD Copy to: ? Specimen/Source: ?ThinPrep Pap Test, Vagina Last Menstrual Period: ? Previous Gynecologic Pathology: ? Adenocarcinoma: of endometrium Treatment History: ? Hysterectomy: ? SPECIMEN ADEQUACY ? Satisfactory for evaluation. GENERAL CATEGORIZATION ? Within Normal Limits ? Document reviewed and electronically signed by: ? MAHIN Luu(ASCP) ? Report Date: ??03/05/2000 11:59 End of Report Specimen Performing Organization Address City/State/ZIP Code Phon e Number [facility] [address] [place] [address] SERVICES [facility] [address] [place] [address] documented in this encounter Visit Diagnoses Not on filedocumented in this encounter Care Teams Projects Manager Relationship Specialty Start Date End Date Magalis Leonard MD PCP - General 07/15/[address] [place] [phone] documented as of this encounter
--- OUTSIDE RECORDS SUMMARY | 2022-05-28 09:45 | XMS_ITS | Encounter Summary ---
:1950 Author Organization [facility] Address [address] [place] [address] Care Team Providers Name Role Phone Magalis Leonard MD Primary Care Provider Encounter Details Date Type Department Care Team Description 02/20/2002 Results Only [facility] - Jewel Fernandez MD conversion [address] [place] [address] Social History Tobacco Use Types Packs/Day Years Used Date Never Assessed Sex Assigned at Date Recorded Not on file documented as of this encounter Plan of Treatment Not on filedocumented as of this encounter Procedures Procedure Name Priority Date/Time Associated Diagnosis Comme nts CYTOPATHOLOGY Routine 02/20/2002 0:00 EDT Results for this procedure are i n the results section . documented in this encounter Results CYTOPATHOLOGY (02/20/2002 0:00 EDT) Pathology Report: CYTOPATHOLOGY REPORT [facility] Reports generated via electronic interface contain yasmeen ginal data; however they are lacking the format of the original re port. Caution should be taken when reading/interpreting unfo rmatted reports. Name: ? RENZO RODGERS ? Accession #: ? [id number] : ? 1950 (Age: 51) ??F ?Collect Date: ? 02/11 Location: ? [facility] ? Receive Date : ? 02/22/2002 Provider: ?JEWEL PEDROZA MD Copy to: ? Specimen/Source: ?ThinPrep Pap Test, Vagina Last Menstrual Period: ? Previous Gynecologic Pathology: ? Carcinoma: Endometrial CA Treatment History: ? Hysterectomy: 1996 ? SPECIMEN ADEQUACY ? Satisfactory for Evaluation - assessment of transformation zone component not appl icable ( e.g. atrophy, vaginal sample, hysterectomy) GENERAL CATEGORIZATION ? Negative for Intraepithelial Lesion or Malignan cy ? Document reviewed and electronically signed by: ? Haily Max, [facility](ASCP) ? Report Date: ??02/23/2002 19:35 End of Report Specimen Performing Organization Address City/State/ZIP Code Phon e Number [facility] [address] [place] [address] SERVICES [facility] [address] [place] [address] documented in this encounter Visit Diagnoses Not on filedocumented in this encounter Care Teams Balance Bridge Assembler Relationship Specialty Start Date End Date Magalis Leonard MD PCP - General 07/15/[address] [place] [phone] documented as of this encounter
--- OUTSIDE RECORDS SUMMARY | 2022-05-28 09:45 | XMS_ITS | Encounter Summary ---
:1950 Author Organization [facility] Address [address] [place] [id number] Care Team Providers Name Role Phone Magalis Leonard MD Primary Care Provider Encounter Details Date Type Department Care Team Description 01/14/2012 Results Only [facility] Dayna Leonard MD Laboratory Services - [address] [place] [address] [address] [place] [phone] (Wo rk) Social History Tobacco Use Types Packs/Day Years Used Date Never Assessed Sex Assigned at Date Recorded Not on file documented as of this encounter Plan of Treatment Not on filedocumented as of this encounter Procedures Procedure Name Priority Date/Time Associated Diagnosis Comme nts PAP TEST- RESULT Routine 01/14/2012 0:00 EDT Resu lts for this ONLY procedure are i n the results section. documented in this encounter Results PAP TEST- RESULT ONLY (01/14/2012 0:00 EDT) Pathology Report: CYTOPATHOLOGY REPORT [facility] Reports generated via electronic interface contain yasmeen ginal data; however they are lacking the format of the original re port. Caution should be taken when reading/interpreting unfo rmatted reports. Name: ? RENZO RODGERS ? Accession #: ? [id number] ? : ? 1950 (Age: 61) ??F ?Collect Da te: ? 01/14/2012 ? Location: ? [facility] ? Receive Date: ? 012 ? Provider: MAGALIS LEONARD MD Copy to: ? Final Report SPECIMEN ADEQUACY ? Satisfactory for Evaluation - assessment of transformation zone component not appl icable ( e.g. atrophy, vaginal sample, hysterectomy) GENERAL CATEGORIZATION ? Negative for Intraepithelial Lesion or Malignan cy ?? Previous Gynecologic Pathology: Yes: Uterine CA 1996 Treatment History: Hysterectomy: 1996 Specimen/Source: ??Pap Test, Vagina, ThinPrep Imaging System with manual evaluation Document reviewed and electronically signed by: ? MAHIN Lee(ASCP) ? Report ??Date: 01/20/2012 15:47 HPV with Pap Test ? Date Ordered: ? 01/20/2012 ? Status: ?? Signed Out ?Date Complete: ? 01/22/2012 ? By: ??S ystem Interface ? Date Reported: ? 01/22/2012 ? Interpretation RESULT: Negative for HPV. No E6 or E7 mRNA is detected from HPV types 16,18,31,3 3,35, 39,45,51,52,56,58,59,66, and 68 by brooch and bracelet maker media mindi amplification. Comments Document reviewed and electronically signed by: ? System Interface ? Report date: 01/22/2012 By the signature above, the attending physician certif ies that he/she has personally conducted a gross and/or microscopic examin ation of the described specimens and rendered or confirmed the above diagnosi s. End of Report Specimen Performing Organization Address City/State/ZIP Code Phon e Number [facility] [address] [place] [address] SERVICES [facility] [address] [place] [address] documented in this encounter Visit Diagnoses Not on filedocumented in this encounter Care Teams Addiction Social Worker Relationship Specialty Start Date End Date Magalis Leonard MD PCP - General 07/15/09 [facility] [address] [place] [phone] documented as of this encounter
--- OUTSIDE RECORDS SUMMARY | 2022-05-28 09:45 | XMS_ITS | Encounter Summary ---
:1950 Author Organization [facility] Address [address] [place] [address] Care Team Providers Name Role Phone Magalis Leonard MD Primary Care Provider Encounter Details Date Type Department Care Team Description 08/23/2000 Results Only [facility] - Jewel Fernandez MD conversion [address] [place] [address] Social History Tobacco Use Types Packs/Day Years Used Date Never Assessed Sex Assigned at Date Recorded Not on file documented as of this encounter Plan of Treatment Not on filedocumented as of this encounter Procedures Procedure Name Priority Date/Time Associated Diagnosis Comme nts CYTOPATHOLOGY Routine 08/23/2000 0:00 EST Results for this procedure are i n the results section . documented in this encounter Results CYTOPATHOLOGY (08/23/2000 0:00 EST) Pathology Report: CYTOPATHOLOGY REPORT [facility] Reports generated via electronic interface contain yasmeen ginal data; however they are lacking the format of the original re port. Caution should be taken when reading/interpreting unfo rmatted reports. Name: ? RENZO RODGERS ? Accession #: ? [id number] : ? 1950 (Age: 50) ??F ?Collect Date: ? 08/13 Location: ? [facility] ? Receive Date : ? 08/24/2000 Provider: ?JEWEL PEDROZA MD Copy to: ? Specimen/Source: ?ThinPrep Pap Test, Vagina Last Menstrual Period: ? Previous Gynecologic Pathology: ? Adenocarcinoma: of Endometrium Treatment History: ? Hysterectomy: 1996 ? SPECIMEN ADEQUACY ? Satisfactory for evaluation. GENERAL CATEGORIZATION ? Within Normal Limits ? Document reviewed and electronically signed by: ? Silvia Lechuga SCT(ASCP) ? Report Date: ??08/26/2000 08:33 End of Report Specimen Performing Organization Address City/State/ZIP Code Phon e Number [facility] [address] [place] [address] SERVICES [facility] [address] [place] [address] documented in this encounter Visit Diagnoses Not on filedocumented in this encounter Care Teams Chemical Operations Specialist Relationship Specialty Start Date End Date Magalis Leonard MD PCP - General 07/15/[address] [place] [phone] documented as of this encounter
--- OUTSIDE RECORDS SUMMARY | 2022-05-28 09:45 | XMS_ITS | Encounter Summary ---
:[address] [facility] Address [address] [place] [address] Care Team Providers Name Role Phone Magalis Leonard MD Primary Care Provider Reason for Visit Reason Comments Follow-up skin check Encounter Details Date Type Department Care Team Description 04/20/2012 Office Visit [facility] [place] Hayden, Demond rrheic keratosis; Dermatology - Main PA-Luiz Other chronic dermatitis due to solar ra diation; [place] [address]; [address] [facility] Folliculitis [place], [place] [id number] [place] [address] [place], [address] [place] [address] (Wo rk) Social History Tobacco Use Types Packs/Day Years Used Date Never Smoker Alcohol Use Standard Drinks/Week Comments Yes 0 (1 standard drink = 0.6 oz pure alcoho l) Sex Assigned at Date Recorded Not on file documented as of this encounter Progress Notes [place] Hayden PA - 04/20/2012 1016 EDT DERMATOLOGY OUT PATIENT PROGRESS NOTE PROBLEM: FOLLOW - UP SKIN CHECK SUBJECTIVE: Porsha is a 61 y.o. female who presents today for a complete skin check. Last visit: 2009 (removed a benign melanotic macule from the labium). History of skin cancer: No Family history of skin cancer: No History of significant sun exposure/sunburns: Yes - very active outdoors, gardens Concerns today: 1. Red veins on cheeks and neck 2. Check moles 3. New spots on back I reviewed outside notes from Magalis Leonard MD's office. I reviewed the past medical history, social history, current medications and allergies. Current Outpatient Prescriptions Medication Sig Dispense Refill ??? Multivitamins with Minerals Tab Take 1 Tab by mouth daily. ??? CALCIUM CARBONATE/VITAMIN D3 (CALCIUM 600 + D ORAL) Take 1 Tab by mouth daily. ??? Bend-3 Fatty Acids-Vitamin E (FISH OIL) 1,000 mg cap Take 1,000 mg by mouth daily. ??? GLUCOSAMINE HCL/CHONDRO LUNA A (GLUCOSAMINE-CHONDROITIN ORAL) Take by mouth daily. ??? metronidazole (METROGEL) 0.75 % gel Apply topically daily. OBJECTIVE: No apparent distress. Appropriate affect and demenaor. SKIN EXAM: Morris skin type II. The following areas were examined: head (including scalp and face), neck, back, chest, breasts, axillae, abdomen, upper extremities, lower extremities, hands, feet and buttocks. The skin exam was norm al except for the followin. Moderate small gauge telangiectasia over cheeks and neck 2. Moderate actinic changes on neck, chest, arms, less on legs 3. Extensive schafer and frazier waxy papules and small plaques on chest, back 4. Scattered medium and dark brown macules on torso ASSESSMENT: 1. Seborrheic keratosis 2. Other chronic dermatitis due to solar radiation 3. Nevus 4. Folliculitis PLAN: 1. The importance of sunscreen use (SPF >30), sun avoidance and self-examination was discussed. 2. The ABCDE's of melanoma were reviewed. Also reviewed signs and symptoms of non-melanoma skin cancers. Advised to call office with any questions or concerns. 3. Patient was reassured about the benign lesions - instructed to call with any changes. She can expect more seborrheic keratoses over time. Reviewed the clinical characteristics (schafer, frazier, waxy etc). 4. Can try different lotions and creams for hair removal to decrease folliculitis 5. Follow-up: PRN; sooner with any questions or concerns. ASAD López 10:16 04/20/2012 Jackie López - 04/20/2012 1014 EDT A complete 12 point review of systems was obtained and reviewed. All systems are negative except for: urgency, frequency of urination. Jackie Germain 04/20/2012 10:14 [place] Hayden PA-C 10:30 04/20/2012 documented in this encounter Plan of Treatment Not on filedocumented as of this encounter Visit Diagnoses Diagnosis Seborrheic keratosis Other seborrheic keratosis Other chronic dermatitis due to solar ra diation Nevus Benign neoplasm of skin, site unspecifie d Folliculitis Other specified disease of hair and hair follicles documented in this encounter Historical Medications This list may reflect changes made after this encounter. Medication Sig Dispensed Refills Start Date End Date metronidazole (METROGEL) Apply topically 0 0.75 % gel daily. GLUCOSAMINE HCL/CHONDRO LUNA Take by mouth daily. 0 A (GLUCOSAMINE-CHONDROITIN ORAL) Bend-3 Fatty Take 1,000 mg by 0 Acids-Vitamin E (FISH OIL) mouth daily. 1,000 mg cap CALCIUM CARBONATE/VITAMIN Take 1 Tab by mouth 0 D3 (CALCIUM 600 + D ORAL) daily. Multivitamins with Take 1 Tab by mouth 0 Minerals Tab daily. added in this encounter Care Teams Labor Operator Relationship Specialty Start Date End Date Magalis Leonard MD PCP - General 07/15/[address] [place] [address] [address] [place] [phone] documented as of this encounter
--- OUTSIDE RECORDS SUMMARY | 2022-05-28 09:45 | XMS_ITS | Encounter Summary ---
:[address] [facility] Address [address] [place] [address] Care Team Providers Name Role Phone Unavailable Primary Care Provider Unavailable Encounter Details Date Type Department Care Team Description 03/15/2008 Before PRISM [facility] - Magalis Leonard, Converted Visit Susanne lazcano MD (Susanne) 111 [facility] [address] [place] [address] [place] [phone] (Wo rk) Social History Tobacco Use Types Packs/Day Years Used Date Never Assessed Sex Assigned at Date Recorded Not on file documented as of this encounter Plan of Treatment Not on filedocumented as of this encounter Procedures Procedure Name Priority Date/Time Associated Comments Diagnosis HPV DETECTION, HIGH Routine 03/15/2008 13:51 Resu lts for this RISK TYPES EDT procedure are i n the results section. CYTOPATHOLOGY Routine 03/15/2008 0:00 Results for this EDT procedure are i n the results section. documented in this encounter Results HUMAN PAPILLOMA VIRUS DNA TEST (03/15/2008 13:51 EDT) Specimen Description Cervix, ThinPrep [facility] vial Result Negative for HPV [facility] types 16, 18, 31, 33, 35, 39, 45, 51, 52, 56, 58, 59, and 68. Report Status Final [facility] [id number] Specimen Performing Organization Address City/State/ZIP Code Phon e Number [facility] [address] [place] [address] SERVICES [facility] [address] [place] [address] CYTOPATHOLOGY (03/15/2008 0:00 EDT) Pathology Report: CYTOPATHOLOGY REPORT ? [facility] ? LAB Reports generated via Flirq interface contain original data; ? however they are lacking the format of the original report. ? Caution should be taken when reading/interpreting unformatted reports. ? Name: ? RENZO RODGERS ? Accession #: ? [id number] ? : ? 1950 (Age: 57) ??F ?Collect Date: ? 03/15/2008 ? Location: ? [facility] ? Receive Date: ? 03/20/2008 ? Provider: ?MAGALIS M DO BBERTIN MD ? Copy to: ? Specimen/Source: ? ThinPrep Pap Test, Vagina, processed on Cytyc ThinPrep ?? Imaging System, with manual evaluation ? Last Menstrual Period: ? Previous Gynecologic Patholo gy: ? Carcinoma: Hyst-uterine ? Other: ? HPVDX - HPV testing requeste d regardless of diagnosis on current ThinPrep Pap ?? test. ? SPECIMEN ADEQUACY ? Satisfactory for Eval uation ? - assessment of transformati on zone component not applicable ( e.g. atrophy, ? vaginal sample, hysterectomy ) ? GENERAL CATEGORIZATION ? Negative for Intraepi thelial Lesion or Malignancy ? Document reviewed and electr onically signed by: ? Eileen F. Dahiana, S CT(ASCP) ? Report Date: ??07/14/ 2008 16:07 ? End of Report ? Specimen Performing Organization Address City/State/ZIP Code Phon e Number [facility] [address] [place] [address] SERVICES [facility] [address] [place] [address] documented in this encounter Visit Diagnoses Not on filedocumented in this encounter
--- OUTSIDE RECORDS SUMMARY | 2022-05-28 09:45 | XMS_ITS | Encounter Summary ---
:1950 Author Organization [facility] Address [address] [place] [address] Care Team Providers Name Role Phone Magalis Leonard MD Primary Care Provider Encounter Details Date Type Department Care Team Description 03/11/2015 Results Only [facility]- PRISM Magalis Leonard MD [phone] [place] [address] (Wo rk) Social History Tobacco Use Types [...] Diagnosis Comme nts PAP TEST- RESULT Routine 03/11/2015 0:00 EDT Resu lts for this ONLY procedure are i n the results section. documented in this encounter Results PAP TEST- RESULT ONLY (03/11/2015 0:00 EDT) Pathology Report: CYTOPATHOLOGY REPORT [facility] Reports generated via electronic interface contain yasmeen ginal data; SERVICES however they are lacking the format of the original re port. Caution should be taken when reading/interpreting unfo rmatted reports. Name: ? RENZO RODGERS ? Accession #: ? [id number] ? : ? 1950 (Age: [age]) ??F ?Collect Date: ? 03/11/2015 ? Location: ? [facility] ? Receive Date: ? 03/12/20 15 ? Provider: MAGALIS LEONARD MD Copy to: ? Final Report SPECIMEN ADEQUACY ? Satisfactory for Evaluation - assessment of transformation zone component not appl icable ( e.g. atrophy, vaginal sample, hysterectomy) GENERAL CATEGORIZATION ? Negative for Intraepithelial Lesion or Malignan cy ?? Menstrual/ Status: ??Post Menopausal Previous Gynecologic Pathology: Carcinoma: uterine can cer 1996 Treatment History: Hysterectomy: 1996 for uterine canc er Specimen/Source: ??Pap Test, Vagina, ThinPrep Imaging System with manual evaluation Document reviewed and electronically signed by: ? MAHIN Tang(ASCP) ? Report ??Date: 03/21/2015 13:30 HPV with Pap Test ? Date Ordered: ? 03/20/2015 ? Status: ?? S igned Out ?Date Complete: ? 03/22/2015 ? By: ??Sy stem Interface ? Date Reported: ? 03/22/2015 ? Interpretation RESULT: High risk HPV testing is only FDA approved and validated for cervical or endocervical samples at the [facility]. It is not validated for vagina l samples as the test performance characteristics have n ot been evaluated. Credit issued. Sample has been sent to [facility] for HP V testing. Comments Document reviewed and electronically signed by: ? System Interface ? Report date: 03/22/2015 By the signature above, the attending physician certif ies that he/she has personally conducted a gross and/or microscopic examin ation of the described specimens and rendered or confirmed the above diagnosi s. End of Report Specimen Performing Organization Address City/State/ZIP Code Phon e Number [facility] [address] [place] [address] SERVICES documented in this encounter Visit Diagnoses Not on filedocumented in this encounter Care Teams Windows Consultant Relationship Specialty Start Date End Date Magalis Leonard MD PCP - General 07/15/09 [facility] [address] [place] [phone] documented as of this encounter
--- OUTSIDE RECORDS SUMMARY | 2022-05-28 09:45 | XMS_ITS | Encounter Summary ---
:1950 Author Organization [facility] Address [address] [place] [address] Care Team Providers Name Role Phone Magalis Leonard MD Primary Care Provider Encounter Details Date Type Department Care Team Description 10/03/[address] [facility] Annamaria Hayden PA-C Dermatology [facility] [place] [facility] 111 [facility] [address] [place], [place] [phone] [place] [address], [place] [phone] (Wo rk) Social History Tobacco Use Types Packs/Day Years Used Date Never Assessed Sex Assigned at Date Recorded Not on file documented as of this encounter Plan of Treatment Not on filedocumented as of this encounter Procedures Procedure Name Priority Date/Time Associated Diagnosis Comme [facility] SURGICAL PATHOLOGY Routine 10/03/2009 0:00 EST Re sults for this procedure are i n the results section. documented in this encounter Results SURGICAL PATHOLOGY (10/03/2009 0:00 EST) Pathology Report: SURGICAL PATHOLOGY REPORT ? [facility] Reports generated via Everpurse interface contain original data; ? LAB however they are lacking the format of the original report. ? Caution should be taken when reading/interpreting unformatted reports. ? Name: ? THOMAS, RENZO N ? Accession #: ? [id number] ? : ? 1950 (Age: 59) ??F ? Collec t Date: ? 10/03/2009 ? Location: ? [facility] ? R eceive Date: ? 10/03/2009 ? Provider: REX A OSVALDO PA ? Copy to: MAGALIS M LADONNA M D ? Final Pathologic Diagnosis: ? Skin of labium minoru m, left, biopsy: ? - Melanotic macule. ? Microscopic Description: ? There is mild epiderm al hyperplasia with accentuation of the rete ? architecture. ??The keratino cytes show welder production line combination maturation with no significant ? cytologic atypia. ??There is an increased amount of melanin pigment within the ?? keratinocytes of the basal z one. ??The junctional melanocytes are normal in ? number and morphology. ??Clu sters of melanophages are present within the ? superficial dermis. ??(Dr. Luiz claire)/marceln ? Document reviewed and electr onically signed by: ? Sanjana Garcia MD ? Report ??Date: 10/04/2009 15 :18 ? By the signature above, the attending physician certifies that he/she has ? personally conducted a gross and/or microscopic examination of the described ? specimens and rendered or co nfirmed the above diagnosis. ? Specimen(s) Received: ? L labium minorum ? Clinical History: ? New dark macule, labi al lentigo, R/O atypia; Clinical diagnosis code: 239.2 ? Gross Description: ? Received in formalin labelled Renzo Rodgers and nai are two shave ? biopsies of schafer skin measuri ng 0.4 x 0.2 x 0.1 cm and 0.6 x 0.5 x 0.1 cm. ??The ?? smaller specimen has an ecce ntric dark brown macule measuring 0.2 x 0.1 cm. ??The large specimen has a central dark brown, asymmetrical macule measuring 0.3 x 0.2 cm. ??The smaller specimen i s submitted entirely as (A1) and the larger specimen is bisected and submitted en tirely as (A2). ??(All Olson)/mpl ? End of Report ? Specimen Performing Organization Address City/State/ZIP Code Phon e Number [facility] [address] [place] [address] SERVICES [facility] [address] [place] [address] documented in this encounter Visit Diagnoses Not on filedocumented in this encounter Care Teams Director Of Outside Sales Relationship Specialty Start Date End Date Magalis Leonard MD PCP - General 07/15/[address] [place] [address] documented as of this encounter
--- OUTSIDE RECORDS SUMMARY | 2022-05-28 09:45 | XMS_ITS | Encounter Summary ---
:1950 Author Organization [facility] Address [address] [place] [address] Care Team Providers Name Role Phone Magalis Leonard MD Primary Care Provider Encounter Details Date Type Department Care Team Description 03/14/2007 Results Only [facility] - Magalis Leonard MD Maple conversion [address] [facility] [address] [place], [place] [phone] [place] [phone] (Wo rk) Social History Tobacco Use Types Packs/Day Years Used Date Never Assessed Sex Assigned at Date Recorded Not on file documented as of this encounter Plan of Treatment Not on filedocumented as of this encounter Procedures Procedure Name Priority Date/Time Associated Diagnosis Comme nts CYTOPATHOLOGY Routine 03/14/2007 0:00 EDT Results for this procedure are i n the results section . documented in this encounter Results CYTOPATHOLOGY (03/14/2007 0:00 EDT) Pathology Report: CYTOPATHOLOGY REPORT [facility] Reports generated via electronic interface contain yasmeen ginal data; however they are lacking the format of the original re port. Caution should be taken when reading/interpreting unfo rmatted reports. Name: ? RENZO RODGERS ? Accession #: ? [id number] : ? 1950 (Age: 56) ??F ?Collect Date: ? 10/2006 Location: ? [facility] ? Receive Date : ? 03/17/2007 Provider: ?MAGALIS LEONARD MD Copy to: ? Specimen/Source: ? ThinPrep Pap Test, Vagina, processed on [employer]Stay ThinPrep Imaging System, with manual evaluation Last Menstrual Period: ? Previous Gynecologic Pathology: ? Endometrial adenocarcinoma: H/o Treatment History: ? Hysterectomy: Uterine Ca. Other: ? HPVA - HPV testing requested if ASC-US on the current ThinPrep Pap test. ? SPECIMEN ADEQUACY ? Satisfactory for Evaluation - assessment of transformation zone component not appl icable ( e.g. atrophy, vaginal sample, hysterectomy) GENERAL CATEGORIZATION ? Negative for Intraepithelial Lesion or Malignan cy ? Document reviewed and electronically signed by: ? ASMITA Brunner(ASCP) ? Report Date: ??03/23/2007 15:23 End of Report Specimen Performing Organization Address City/State/ZIP Code Phon e Number [facility] [address] [place] [address] SERVICES [facility] [address] [place] [address] documented in this encounter Visit Diagnoses Not on filedocumented in this encounter Care Teams Logging Supervisor Relationship Specialty Start Date End Date Magalis Leonard MD PCP - General 07/15/[address] [place] [address] documented as of this encounter
--- OUTSIDE RECORDS SUMMARY | 2022-05-28 09:45 | XMS_ITS | Encounter Summary ---
:1950 Author Organization [facility] Address [address] [place] [address] Care Team Providers Name Role Phone Magalis Leonard MD Primary Care Provider Reason for Visit Reason Onset Date Comments Appointment Related 03/30/2016 Encounter Details Date Type Department Care Team Description 03/30/2016 Telephone [facility] Klaa House nt Related Dermatology - [facility] MD [place] [address] 111 [facility] [address] [place], [place] [address] [place] [address] [phone] (Wo rk) Social History Tobacco Use Types Packs/Day Years Used Date Never Smoker Alcohol Use Standard Drinks/Week Comments Yes 0 (1 standard drink = 0.6 oz pure alcoho l) Sex Assigned at Date Recorded Not on file documented as of this encounter Miscellaneous Notes Telephone Encounter - Emeli Boyce RN - 03/30/2016 1639 EDT Patient had to cancel appointment will be out of town. Rescheduled for NPV 01/12/17 at 10:15 AM with Rika Hayden PA-C, EP3 EMELI BOYCE RN 03/30/2016 16:45 elephone Encounter - Julia Dueñas - 03/30/2016 1433 EDT Left message informing patient that Maggie has an opening on 07/08/2016 at 10:15am. Asked her to call back if she wishes to cancel and reschedule. Julia Dueñas 03/30/2016 14:34 elephone Encounter - Emeli Boyce RN - 03/30/2016 1133 EDT Patient last seen on 04/20/12 by Rika Hayden PA-C Hx seborrheic keratoses, folliculitis, rosacea Patient requests appointment on same day as her Prefers appointment with Rika Hayden PA-C Scheduled for NPV at [address] Martinez, WP5 ( scheduled NPV 07/08/16 at 10:15 AM with Rika Hayden PA-C, EP3) Patient aware that there are no appointments available with Rika Hayden on same date as 's appointment. She can schedule next FUR with Rika Hayden if she would like to keep her as her provider. EMELI BOYCE RN 03/30/2016 11:38 elephone Encounter - Julia Armijo - 03/30/2016 1024 EDT Patient was last seen in 2011 and requesting visit (NPV) sooner than Maggie Hayden's next available. Current request: FBSE with some moles that look different. Patient's , Luis Rdogers : [birth year], would also like a NPV, being referred by Dr. Silvia Day. Separate encounter started for this patient, please book visits same day, same provider, back to pack if possible. They travel about 2 hours to get here. See telephone encounter in Luis's chart for further detail. documented in this encounter Plan of Treatment Not on filedocumented as of this encounter Visit Diagnoses Not on filedocumented in this encounter Care Teams Management Scientist Relationship Specialty Start Date End Date Magalis Leonard MD PCP - General 07/15/[address] [place] [address] [address] [place] [address] documented as of this encounter
--- OUTSIDE RECORDS SUMMARY | 2022-05-28 09:45 | XMS_ITS | Encounter Summary ---
:[address] [facility] Address [address] [place] [address] Care Team Providers Name Role Phone Magalis Leonard MD Primary Care Provider Encounter Details Date Type Department Care Team Description 02/21/2001 Results Only [facility] - Jewel Fernandez MD conversion [address] [place] [address] Social History Tobacco Use Types Packs/Day Years Used Date Never Assessed Sex Assigned at Date Recorded Not on file documented as of this encounter Plan of Treatment Not on filedocumented as of this encounter Procedures Procedure Name Priority Date/Time Associated Diagnosis Comme nts CYTOPATHOLOGY Routine 02/21/2001 0:00 EDT Results for this procedure are i n the results section . documented in this encounter Results CYTOPATHOLOGY (02/21/2001 0:00 EDT) Pathology Report: CYTOPATHOLOGY REPORT [facility] Reports generated via electronic interface contain yasmeen ginal data; however they are lacking the format of the original re port. Caution should be taken when reading/interpreting unfo rmatted reports. Name: ? RENZO RODGERS ? Accession #: ? [id number] : ? 1950 (Age: 50) ??F ?Collect Date: ? 02/11 Location: ? [facility] ? Receive Date : ? 02/23/2001 Provider: ?JEWEL PEDROZA MD Copy to: ? Specimen/Source: ?ThinPrep Pap Test, Vagina Last Menstrual Period: ? Previous Gynecologic Pathology: ? Carcinoma: Endometrial Treatment History: ? Hysterectomy: 1996 ? SPECIMEN ADEQUACY ? Satisfactory for evaluation. GENERAL CATEGORIZATION ? Within Normal Limits ? Document reviewed and electronically signed by: ? MAHIN Lee(ASCP) ? Report Date: ??02/24/2001 14:39 End of Report Specimen Performing Organization Address City/State/ZIP Code Phon e Number [facility] [address] [place] [address] SERVICES [facility] [address] [place] [address] documented in this encounter Visit Diagnoses Not on filedocumented in this encounter Care Teams Data Entry Coordinator Relationship Specialty Start Date End Date Magalis Leonard MD PCP - General 07/15/[address] [place] [phone] documented as of this encounter
--- OUTSIDE RECORDS SUMMARY | 2022-05-28 09:45 | XMS_ITS | Encounter Summary ---
:1950 Author Organization [facility] Address [address] [place] [address] Care Team Providers Name Role Phone Magalis Leonard MD Primary Care Provider Encounter Details Date Type Department Care Team Description 08/22/2001 Results Only [facility] - Jewel Fernandez MD conversion [address] [place] [address] Social History Tobacco Use Types Packs/Day Years Used Date Never Assessed Sex Assigned at Date Recorded Not on file documented as of this encounter Plan of Treatment Not on filedocumented as of this encounter Procedures Procedure Name Priority Date/Time Associated Diagnosis Comme nts CYTOPATHOLOGY Routine 08/22/2001 0:00 EST Results for this procedure are i n the results section . documented in this encounter Results CYTOPATHOLOGY (08/22/2001 0:00 EST) Pathology Report: CYTOPATHOLOGY REPORT [facility] Reports generated via electronic interface contain yasmeen ginal data; however they are lacking the format of the original re port. Caution should be taken when reading/interpreting unfo rmatted reports. Name: ? RENZO RODGERS ? Accession #: ? [id number] : ? 1950 (Age: 51) ??F ?Collect Date: ? 08/13 Location: ? [facility] ? Receive Date : ? 08/23/2001 Provider: ?JEWEL PEDROZA MD Copy to: ? Specimen/Source: ?ThinPrep Pap Test, Vagina Last Menstrual Period: ? Previous Gynecologic Pathology: ? Endometrial adenocarcinoma: IB Treatment History: ? Hysterectomy: 1996 ? SPECIMEN ADEQUACY ? Satisfactory for evaluation. GENERAL CATEGORIZATION ? Within Normal Limits ? Document reviewed and electronically signed by: ? MAHIN Badillo(ASCP) ? Report Date: ??08/25/2001 14:30 End of Report Specimen Performing Organization Address City/State/ZIP Code Phon e Number [facility] [address] [place] [address] SERVICES [facility] [address] [place] [address] documented in this encounter Visit Diagnoses Not on filedocumented in this encounter Care Teams Mirror Maker Relationship Specialty Start Date End Date Magalis Leonard MD PCP - General 07/15/[address] [place] [id number] documented as of this encounter
--- OUTSIDE RECORDS SUMMARY | 2022-05-28 09:45 | XMS_ITS | Clinical Summary ---
:1950 Author Organization [facility] Address [address] [place] [address] Care Team Providers Name Role Phone Magalis Leonard MD Primary Care Provider Allergies Active Allergy Reactions Severity Noted Date Comments Ibuprofen Palpitations 04/20/2012 Sulfa (Sulfonamide Antibiotics) Other (See Comments) 0 04/20/2012 Medications Medication Sig Dispensed Refills Start Date End Date Status Multivitamins with Take 1 Tab by 0 Active Minerals Tab mouth daily. CALCIUM Take 1 Tab by 0 Active CARBONATE/VITAMIN D3 mouth daily. (CALCIUM 600 + D ORAL) [place]-3 Fatty Take 1,000 mg by 0 Active Acids-Vitamin E (FISH mouth daily. OIL) 1,000 mg cap GLUCOSAMINE Take by mouth 0 Acti ve HCL/CHONDRO LUNA A daily. (GLUCOSAMINE-CHONDROIT IN ORAL) metronidazole Apply topically 0 Active (METROGEL) 0.75 % gel daily. Active Problems Problem Noted Date Seborrheic keratosis 04/20/2012 Nevus 04/20/2012 Surgical History Surgery Date Site/Laterality Comments HYSTERECTOMY Medical History Medical History Date Comments Cancer (HCC-CMS) (HCC) Rosacea Social History Tobacco Use Types Packs/Day Years Used Date Never Smoker Alcohol Use Standard Drinks/Week Comments Yes 0 (1 standard drink = 0.6 oz pure alcoho l) Sex Assigned at Date Recorded Not on file Plan of Treatment Health Maintenance Due Date Last Done Comments Fall Risk Screening 2015 Care Teams Ham Doctor Relationship Specialty Start Date End Date Magalis Leonard MD PCP - General 07/15/[address] [place] [id number]
== END ==
PROVIDERS: PCP Family Medicine; Visit Provider Family Medicine
DX: E04.1 Nontoxic single thyroid nodule (principal)
CPT/HCPCS: 76536

== ENCOUNTER → 2022-05-29 00:39 | Outpatient (CLI) | payer MEDICARE, SELFPAY ==
--- NOTE | 2022-05-29 08:00 | DI.MAMMO_ITS ---
Exam(s) MAMMO SCREENING EXAM: MAMMO SCREENING CLINICAL HISTORY: screening,z12.39. TECHNIQUE: Bilateral full field digital CC and MLO mammographic images were obtained with 3D tomosyn thesis and utilizing computer aided detection (CAD). COMPARISON: Prior mammograms were reviewed, the most recent being May 2020. FINDINGS: There has been no significant change in the appearance and distribution of the fibroglandular tissue. There are no new spiculated masses nor malignant appearing microcalcification groups. There is no significant architectural distortion nor skin thickening-retraction. IMPRESSION: No radiographic evidence of malignancy. BI-RADS Category 1 - Negative Breast Density - Category B - Scattered areas of fibroglandular density Breast density Category C or D implies that the patient has dense breast tissue. Dense breast tissue can make it harder to find cancer on a mammogram. Dense breast tissue is also associated with an incr eased risk of breast cancer. This information about the result of the mammogram report was provided to the patient to raise their awareness. Use this report when you speak with the patient about their risks for breast cancer, which includes their family history. At that time, you may recommend additional screening tests (Ultrasoun d or MRI) as these tests may add significant information. A negative radiographic report should not delay biopsy if a dominant or clinically suspicious mass is present. Up to ten percent of cancers are not identified on mammography. A negative report may reinforce clinical impression. Adenosis and dense breasts may obscure an underlying neoplasm. False positive reports average 6 to 10%. Patient will receive a letter notifying them of these results.
== END ==
PROVIDERS: PCP Family Medicine; Visit Provider Family Medicine
DX: Z12.31 Encounter for screening mammogram for malignant neoplasm of breast (principal)
CPT/HCPCS: 77063; 77067

== ENCOUNTER 2022-06-10 11:32 | Outpatient (CLI) | payer MEDICARE, SELFPAY ==
[2022-06-10 12:32] LABS: TSH (W/Ref FT4) 1.94 uIU/mL (0.36-3.74)
== END 2022-06-10 11:33 | disposition home or self-care (01) ==
LOC: LOS 11:34
PROVIDERS: PCP Family Medicine; Visit Provider Family Medicine
DX: E04.1 Nontoxic single thyroid nodule (principal)
CPT/HCPCS: 36415; 84443

== ENCOUNTER → 2022-06-12 00:55 | Outpatient (CLI) | payer MEDICARE, SELFPAY ==
--- NOTE | 2022-06-12 13:45 | DI.DEXA_ITS ---
Exam(s) XR DEXA BONE DENSITY W/WO DESTINY EXAM: XR DEXA BONE DENSITY W/WO DESTINY CLINICAL HISTORY: osteoporosis,m81.0 TECHNIQUE: COMPARISON: No exams were available for comparison FINDINGS: DEXA scan was performed according to the usual protocol. Please see the accompanying data sheets. F indings for left hip scanning are T-score -1.5 with left femoral neck T-score -0.8. Prior examinatio n of November 30 showed left hip T-score -0.8. Lumbar spine scanning shows T-score -1.1. Prior examination of 30/01 showed lumbar T-score -1.2. Left forearm scanning shows T-score -2.1. IMPRESSION: Measurements are consistent with osteopenia according to the WHO criteria. The lateral vertebral sca nogram shows no evidence of a vertebral compression fracture. RADIATION DOSE DELIVERED: Total DLP
== END ==
PROVIDERS: PCP Family Medicine; Visit Provider Family Medicine
DX: Z13.820 Encounter for screening for osteoporosis (principal); M85.88 Other specified disorders of bone density and structure, other site
CPT/HCPCS: 77080

== ENCOUNTER 2023-05-27 02:19 | Outpatient (CLI) | payer MEDICARE, SELFPAY ==
[2023-05-27 12:31] LABS: Hemoglobin A1C 5.7 % (<5.7)
[2023-05-27 12:50] LABS: TSH (W/Ref FT4) 2.43 uIU/mL (0.36-3.74); Vitamin B12 563 pg/mL (193-986)
== END 2023-05-27 02:20 | disposition home or self-care (01) ==
LOC: LOS 02:20
PROVIDERS: PCP Family Medicine; Visit Provider Family Medicine
DX: E11.9 Type 2 diabetes mellitus without complications (principal); G62.9 Polyneuropathy, unspecified; M85.80 Other specified disorders of bone density and structure, unspecified site; E03.9 Hypothyroidism, unspecified
CPT/HCPCS: 36415; 82607; 83036; 84443

== ENCOUNTER 2023-06-17 04:17 | Outpatient (CLI) | payer MEDICARE, SELFPAY ==
[2023-06-21 12:53] LABS: Albumin g/dL 4.3 g/dL (3.6-5.2); Total Protein 7.1 g/dL (6.3-8.2)
== END 2023-06-17 04:18 | disposition home or self-care (01) ==
LOC: LOS 04:17
PROVIDERS: PCP Family Medicine; Visit Provider Family Medicine
DX: G62.9 Polyneuropathy, unspecified (principal)
CPT/HCPCS: 36415; 84165

== ENCOUNTER 2024-06-02 01:50 | Outpatient (CLI) | payer MEDICARE, SELFPAY ==
[2024-06-05 10:21] LABS: Lyme Ab w Rflx to Lyme Confirm Negative (Negative)
[2024-06-05 23:51] LABS: Anaplasma phagocytophilum Negative (Negative); B. miyamotoi PCR Negative (Negative); Babesia divergens/MO-1 Negative (Negative); Babesia duncani Negative (Negative); Babesia microti Negative (Negative); Ehrlichia chaffeensis Negative (Negative); Ehrlichia ewingii/canis Negative (Negative); Ehrlichia muris eauclairensis Negative (Negative)
== END 2024-06-02 01:51 | disposition home or self-care (01) ==
LOC: LOS 01:51
PROVIDERS: PCP Family Medicine; Visit Provider Family Medicine
DX: S30.860A Insect bite (nonvenomous) of lower back and pelvis, initial encounter (principal); W57.XXXA Bitten or stung by nonvenomous insect and other nonvenomous arthropods, initial encounter; Z12.39 Encounter for other screening for malignant neoplasm of breast; G62.9 Polyneuropathy, unspecified; M24.551 Contracture, right hip; M54.50 Low back pain, unspecified; M79.604 Pain in right leg; Q74.2 Other congenital malformations of lower limb(s), including pelvic girdle
CPT/HCPCS: 36415; 87798; 86618

== ENCOUNTER 2024-06-07 01:50 | Outpatient (CLI) | payer MEDICARE, SELFPAY ==
--- NOTE | 2024-06-07 07:15 | DI.RAD_ITS ---
Exam(s) XR LUMBAR SPINE COMPLETE EXAM: XR LUMBAR SPINE COMPLETE CLINICAL HISTORY: Low back pain, right leg pain,m54.50. TECHNIQUE: 2D digital imaging was performed. COMPARISON: CR XR DEXA BONE DENSITY W/WO DESTINY from 06/12/2022 FINDINGS: Five views. There is no evidence of fracture nor prominent disc space narrowing. There is mild disc space narrow ing at L3-4 level. There is mild degenerative anterolisthesis L4 upon L5 related to facet arthropath y. No pars defects evident. There is facet arthropathy evident at the lower 3 levels. Minimal cyst s scoliosis convex right. SI joints unremarkable. Surgical clips noted in both sides of the pelvis. IMPRESSION: Mild degenerative anterolisthesis of L4 upon L5 without significant disc space narrowing at this leve l. Multilevel moderate facet arthropathy. DATA REPOSITORY: RADIATION DOSE DELIVERED:
--- NOTE | 2024-06-07 07:15 | DI.MAMMO_ITS ---
Exam(s) MAMMO SCREENING EXAM: MAMMO SCREENING CLINICAL HISTORY: screening,z12.39 TECHNIQUE: Bilateral full field digital CC and MLO mammographic images were obtained with 3D tomosyn thesis and utilizing computer aided detection (CAD). COMPARISON: Available for comparison. FINDINGS: Masses/Architectural Distortion: None seen. Microcalcifications: No suspicious pleomorphic-type are seen. Skin Thickening/Nipple Retraction: None. IMPRESSION: 1. No significant interval change with no specific features of malignancy noted. 2. Unless there is more urgent need, screening mammography is recommended, as per [employer] guidelines. BI-RADS Category 1 - Negative Breast Density - Category B - Scattered areas of fibroglandular density Breast density category C or D implies that the patient has dense breast tissue. Dense breast tissue is very common and is not abnormal but dense breast tissue can make it harder to find cancer on a ma mmogram. Also, dense breast tissue may increase their breast cancer risk. This information about the result of the mammogram report was provided to the patient to raise their awareness. Use this report when you speak with the patient about their risks for breast cancer, which includes their family hist ory. At that time, you may recommend for more screening tests (Ultrasound or MRI) as they might be us eful based on their risk. A negative radiographic report should not delay biopsy if a dominant or clinically suspicious mass is present. Up to ten percent of cancers are not identified on mammography. A negative report may reinforce clinical impression. Adenosis and dense breasts may obscure an underlying neoplasm. False positive reports average 6 to 10%. Patient will receive a letter notifying them of these results.
--- NOTE | 2024-06-07 07:15 | DI.RAD_ITS ---
Exam(s) XR HIP RT COMPLETE AP PELVIS EXAM: XR HIP RT COMPLETE AP PELVIS CLINICAL HISTORY: right hip pain,,pain rt leg,m25.551,m79.604. TECHNIQUE: 2D digital imaging was performed. COMPARISON: CT ABD PELVIS WITH CONTRAST from 04/01/2017 FINDINGS: Two views. No evidence of pelvic nor hip fracture. There are moderate degenerative changes both hips. There is only mild-minimal joint space narrowing but there are small osteophytes on the femoral heads bilater ally. Bone density age-appropriate. Surgical clips again noted in both sides of the pelvis. IMPRESSION: Moderate degenerative changes in both hips No fractures evident. No osseous lesions. DATA REPOSITORY: RADIATION DOSE DELIVERED:
== END 2024-06-07 02:10 ==
LOC: DI 01:50
PROVIDERS: PCP Family Medicine; Visit Provider Family Medicine
DX: Z12.31 Encounter for screening mammogram for malignant neoplasm of breast (principal); M16.0 Bilateral primary osteoarthritis of hip; M51.36 Other intervertebral disc degeneration, lumbar region
CPT/HCPCS: 77063; 77067; 72110; 73502

== ENCOUNTER → 2024-07-12 11:11 | Outpatient (BNVA) | payer MEDICARE, SELFPAY | PROVIDERS: PCP Family Medicine; Referring Provider Family Medicine; Visit Provider Podiatrist | DX: M19.071 Primary osteoarthritis, right ankle and foot (principal); B07.0 Plantar wart; M67.471 Ganglion, right ankle and foot; M79.672 Pain in left foot | CPT/HCPCS: 17110; 20612 ==